=== PATIENT | male | born 1970 | race Caucasian/White ===

== ENCOUNTER 2016-04-27 20:22 | Inpatient (IN) | payer OTHER, BC ==
[~2016-04-27] VITALS: Ht 167.6 cm; Wt 133.8 kg
--- NOTE | ~2016-04-27 | HC ---
[facility] [place] [address] CONSULTATION Name: RAVINDERROBERT D Room #: 405-P [facility] M.R.#: [id number] Admission: 04/27/16 Attend Phys: Edilberto Malcolm MD Discharge: Date of : 74 Report #: [id number] THIS REPORT FOR: //name// CC: Geno Malcolm DATE OF SERVICE: 04/29/2016 HISTORY OF PRESENT ILLNESS: A 45-year-old white man with spina bifida, he is admitted with superficial ulceration of left thigh, possible cellulitis. He is started on Rocephin and Zyvox. The patient is alert, comfortable, in no distress. No systemic symptoms. He lives at home by himself and visiting nurses change dressing on his thighs daily and he is also helped at home with his bathing. DRUG ALLERGIES: VANCOMYCIN. MEDICATIONS: The patient is on treatment with warfarin 5 mg p.o. daily, magnesium hydroxide p.r.n., enoxaparin 40 mg subQ at bedtime, Rocephin 1 gram IV daily, linezolid 600 mg IV every 12 hours, ferrous sulfate 325 mg p.o. daily, ascorbic acid 500 mg daily and multivitamin 1 daily. PAST MEDICAL HISTORY: Spina bifida, multiple back surgeries. Ventriculoperitoneal shunt. History of DVT. Status post left calcanectomy for osteomyelitis. Multiple decubitus ulceration, debridement and flap closure. Longstanding history of left thigh superficial ulceration. Morbid obesity. Malnutrition. Debility. FAMILY HISTORY: See H and P, old records. SOCIAL HISTORY: See H and P, old records. REVIEW OF SYSTEMS: No systemic symptoms or fevers, did have some nausea and vomiting today. PHYSICAL EXAMINATION: GENERAL: Overweight man, not toxic looking. VITAL SIGNS: Temperature maximum since admission 99.3, pulse 92, respirations 18, BP 121/76, height 5 feet 6 inches and weight 295 pounds. HEENMT: Within range. NECK: Supple. LUNGS: Clear. HEART: S1, S2. No gallop or murmur. ABDOMEN: Obese, soft, no masses or megaly. BACK: Multiple surgical scars. GENITALIA AND RECTAL: Deferred. [address] [address] CONSULTATION Name: ROBERT CASTELLON Room #: 405-P [facility] [place] ..#: [id number] Admission: 04/27/16 Attend Phys: Edilberto Malcolm MD Discharge: Date of : 74 Report #: [id number] NEUROLOGIC: Paraplegia. EXTREMITIES: The left heel surgical scar well healed. The left thigh exam reveals superficial ulcerations and no deep structures exposed as well as chronic changes, but with contact dermatitis versus stasis dermatitis of the area. The patient relates may be the tape may be causing some of his problem. Minimal to no erythema. Minimal to no increased temperature. LABORATORY DATA: Sodium 138, potassium 3.8, BUN 12, creatinine 0.9, glucose 105. Albumin 2.6. WBC on admission 7.2, hemoglobin 8.2 g/dL, platelets 463,000; white blood cell count differential normal. MICROBIOLOGY DATA: Blood cultures were obtained on admission in a patient without fever or leukocytosis and they remain negative as one may expect. Note is made that the patient had previously Proteus mirabilis, MRSA on the foot and VRE in the urine. ASSESSMENT: 1. Possible cellulitis, left thigh. 2. Anemia of chronic disease. 3. Deep venous thrombosis, upper extremity, on Coumadin. 4. Spina bifida, paraplegia. 5. Neurogenic bladder, self catheterization. 6. Left posterior thigh chronic superficial ulcerations, question contact dermatitis. 7. Recent left heel osteomyelitis, status post calcanectomy. SUGGESTIONS: Recommend continued local wound care, Zyvox and Rocephin. Monitor ESR and CRP. If those normal, recommend discontinuation of parenteral antibiotics, continuation of local wound care and possibly discharge home. Dr. Malcolm, thank you for requesting my suggestions. <ELECTRONICALLY SIGNED> By: Nixon Crystal MD 05/02/16 1120 [id number] Nixon Crystal MD /nt
--- NOTE | ~2016-04-27 | H ---
[facility] [place] [address] HISTORY AND PHYSICAL Name: ROBERT CASTELLON Room #: 405-P [facility].#: [id number] Admission: 04/27/16 Attend Phys: Edilberto Malcolm MD Discharge: 05/02/16 Date of : 74 Report #: [id number] THIS REPORT FOR: //name// CC: Kateryna Bates ATTENDING PHYSICIAN:Nahun Ross M.D. PRIMARY CARE PHYSICIAN: Geno Bates M.D. CHIEF COMPLAINT: Left lower extremity swelling and redness. HISTORY OF PRESENT ILLNESS: The patient is a 45-year-old male with a history of spina bifida with paraplegia. He does have chronic left posterior thigh, buttock, decubitus ulcer that he has had for at least 25 years. He has had a prior muscle flap done in this area. He has had open wounds there again for the last few years and has been followed by Dr. Torres in the wound care clinic and has had multiple debridements. He was last here in January 2016 when he had a left heel osteomyelitis and required left heel partial calcanectomy. His cultures grew Proteus mirabilis and MRSA. He was discharged here on Unasyn and Zyvox. He went to his skilled facility and just has got out about 2 weeks ago. When he was discharged, he was switched to oral Zyvox and he is still taking that at this time. He denies any fevers. He does have home health who comes in daily and does dressing changes on his left thigh wound. He states that home health nurse thought he was having increasing left lower extremity edema and also some redness in his left calf area. She was concerned that there was possibly a DVT. Therefore, she sent him into the ER. He has not been having any fevers or chills. He really does not have much pain in this area because of his spina bifida. He says otherwise, he has been feeling fine recently with good appetite. No vomiting or diarrhea. While he was at rehab, he did have new DVT in his arm due to PICC line, which was subsequently removed. He was started on Coumadin and as of 5 days ago, his INR level was 4.0 and his dose was decreased. He denies any bleeding. He does have a history of anemia as well and it was previously felt to be due to chronic disease and iron deficiency. PAST MEDICAL HISTORY: Recent arm DVT, spina bifida with paraplegia, left posterior thigh chronic decubitus wound, hypertension, hydrocephalus, neurogenic bladder, scoliosis. 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 ALLERGIES: VANCOMYCIN cause itching and swelling. HOME MEDICATIONS: Zyvox 600 mg b.i.d, Coumadin 2 mg daily, gentamicin ointment [address] [address] HISTORY AND PHYSICAL Name: ROBERT CASTELLON Room #: 405-P [facility] ..#: [id number] Admission: 04/27/16 Attend Phys: Edilberto Malcolm MD Discharge: 05/02/16 Date of : 74 Report #: [id number] to the wound daily, vitamin C 500 mg daily, multivitamin with iron daily. SOCIAL HISTORY: The patient lives alone. He is wheelchair bound and is currently nonambulatory. He previously walked up until about 4 years ago. Denies any tobacco or alcohol use. He does have home health nursing, who is coming in daily now to do his dressing changes. FAMILY HISTORY: His mother 7 days after postsurgical complication. REVIEW OF SYSTEMS: Twelve point review of systems was reviewed with the patient, otherwise negative unless stated in the HPI. PHYSICAL EXAMINATION: GENERAL: The patient is an alert, obese male in no acute distress. VITAL SIGNS: Temperature is 36.8, heart rate 98, respirations 16, blood pressure is 136/88, oxygen 100% on room air. HEENT: PERRLA. Sclerae is nonicteric. Oral mucosa is pink and moist. NECK: Supple, no JVD noted. CARDIOVASCULAR: Normal S1, S2. No murmurs, rubs or gallops. RESPIRATORY: Breath sounds are clear bilaterally. No wheezing or rhonchi. Breathing is nonlabored. ABDOMEN: Obese, soft, nontender with positive bowel sounds. VASCULAR: He does have 4+ bilateral lower extremity edema with significant pedal edema at 4+. Pedal pulses are 1+. Feet are warm. SKIN: He does have a very large area of wounds to his left posterior thigh. He has a very odd appearance with multiple open areas, none of which are very deep and most of them are nondraining. There really has no surrounding erythema in this area. There is however, some very subtle erythema in his left calf as well as his right anterior torres. There is slightly warmth with underlying edema. He really does not have any sensation in this area to tell if he is having any pain with palpation. NEUROLOGIC: The patient is alert. He is oriented x 3. He is answering questions appropriately. He is moving his arms without difficulty and he is to have no movement of his lower extremities due to spina bifida. LABORATORY DATA AND DIAGNOSTICS: WBC 7.2, hemoglobin 8.2, platelets 463. INR 1.3. Sodium 138, potassium 3.8, BUN 12, creatinine 0.9, glucose 105. LFTs are within normal limits and venous Dopplers of lower extremities were negative for DVT. ASSESSMENT AND PLAN: 1. Mild cellulitis in the lower extremities. We will continue with IV Zyvox. The patient had been on oral Zyvox due to the previous left heel osteomyelitis. He looks nontoxic. He is afebrile without leukocytosis. Blood cultures have been drawn, and if negative, he will likely be able to discharge to back to home soon. We will also check a methicillin-resistant Staphylococcus aureus nasal [facility] [address] [place] [address] HISTORY AND PHYSICAL Name: ROBERT CASTELLON Room #: 405-P [facility]#: [id number] Admission: 04/27/16 Attend Phys: Edilberto Malcolm MD Discharge: 05/02/16 Date of : 74 Report #: [id number] swab. 2. Anemia. This is chronic. He normally runs around hemoglobin at 9. He is not having any active bleeding. Continue with iron supplement daily. 3. Recent deep vein thrombosis of the upper extremity, he is on Coumadin, although his INR is subtherapeutic. We will increase the dose slightly and check INR daily. 3. Spina bifida with paraplegia. He does have associated neurogenic bladder, continue with self catheterizations. 4. Chronic left posterior thigh wound. Patient is followed by Dr. Torres in the wound clinic. We will consult Dr. Torres for further recommendations. 5. Recent left heel osteomyelitis. He is status post partial calcanectomy and had been on oral Zyvox. Continue with IV Zyvox for now. 6. Deep vein thrombosis prophylaxis. Continue with Coumadin. We will continue to follow the patient closely throughout the hospitalization and make changes based on clinical status. <ELECTRONICALLY SIGNED> By: MAXWELL Humphreys 05/06/16 0646 [id number] MAXWELL Humphreys /nt
--- NOTE | ~2016-04-27 | HC ---
[facility] [place] [address] CONSULTATION Name: ROBERT CASTELLON Room #: 405-P [facility] IN ..#: [id number] Admission: 04/27/16 Attend Phys: Edilberto Malcolm MD Discharge: 05/02/16 Date of : 74 Report #: [id number] THIS REPORT FOR: //name// CC: Geno Malcolm DATE OF SERVICE: 04/28/2016 PERSONAL PHYSICIAN: Geno Bates M.D. CHIEF COMPLAINT: Left lower extremity swelling and redness. HISTORY OF PRESENT ILLNESS: This is a 45-year-old white male who has been a longstanding patient of mine, with a history of spina bifida and a chronic ulceration on his left posterior thigh region. The patient was seen by home health nurses yesterday and were concerned about increasing redness, swelling, warmth and tenderness of the left lower extremity concerning for possible blood clot versus cellulitis. The patient contacted our office at around 5 p.m. At that time, we told him that he needed to go to the Emergency Department for evaluation and at least an ultrasound and possible admission for cellulitis. The patient was admitted for cellulitis and is currently receiving IV antibiotics. The patient was actually seen by myself last week and the patient was doing quite well. The patient admits to the fact, however, that he has had further breakdown of his left posterior thigh ulceration just in the past week due to the fact that he has been home and having to do transfers with slide board and the nurses had noted increased shearing of this ulceration. The patient denies any other associated ulcerations at this time; however, the patient had a recent partial calcanectomy secondary to left heel osteomyelitis; that wound as of last week had totally closed. PAST MEDICAL HISTORY: Significant for recent right arm DVT, spina bifida with paraplegia, chronic left posterior thigh decubitus ulcer, hypertension, hydrocephalus, neurogenic bladder and scoliosis. CURRENT MEDICATIONS: Multiple including Zyvox and Coumadin. DRUG ALLERGIES: VANCOMYCIN. SOCIAL HISTORY: The patient resides alone and spends most of his time up in his wheelchair while at home. FAMILY HISTORY: Not pertinent to current medical condition. REVIEW OF SYSTEMS: CONSTITUTIONAL: The patient states he had a low grade fever yesterday, but has had no fever today. The patient denies any actual chills. [facility] [address] [place] [address] CONSULTATION Name: ROBERT CASTELLON Room #: 405-P [facility] IN [facility].#: [id number] Admission: 04/27/16 Attend Phys: Edilberto Malcolm MD Discharge: 05/02/16 Date of : 74 Report #: [id number] NEUROLOGIC: The patient has generalized weakness. EYES: No complaints. ENT: No complaints. CARDIAC: The patient had lower extremity edema which is chronic for him. GASTROINTESTINAL: The patient denies nausea, vomiting, abdominal pain. RESPIRATORY: The patient denies shortness breath, cough or wheezes. GENITOURINARY: The patient denies any urgency or frequency. The patient, however, does have a neurogenic bladder. MUSCULOSKELETAL: No complaints. SKIN: There is a chronic ulceration in his left posterior thigh as well as a healed surgical wound on the left heel. PHYSICAL EXAMINATION: VITAL SIGNS: Stable. The patient is afebrile. GENERAL: This is a morbidly obese white male who is in no acute distress. HEENT: Normocephalic, atraumatic. Mucous membranes are dry. Pupils are round. Sclerae are white. LUNGS: Clear. HEART: Regular. ABDOMEN: Obese, soft, otherwise nontender. MUSCULOSKELETAL: Evaluation of the left posterior diarrhea reveals multiple ulcerations consistent with stage III ulcerations, vascularly worse than it was approximately 1 week ago when I evaluated him. There is increased erythema, warmth and serosanguineous drainage noted from the ulcerations. Left lower extremity has 3-4+ edema with slight increased warmth, erythema. The left heel surgical wound still appears to be intact without signs of any drainage or dehiscence. Right lower extremity has 2-3+ edema without erythema, warmth. The right heel is intact. NEUROLOGIC: Cranial nerves 2-12 grossly intact. Motor and sensory, the patient is paraplegic below the waist. LABORATORY DATA: White count 7.2, hemoglobin 8.2, albumin is low at 2.6. Venous Dopplers, left lower extremity, shows no signs of deep venous cirrhosis. IMPRESSION: 1. Chronic ulceration, left posterior thigh, stage 3, present on admission. 2. Spina bifida with paraplegia. 3. Cellulitis, left lower extremity secondary to chronic ulceration. 4. Status post left partial calcanectomy, overall doing well. 5. Morbid obesity. 6. Severe protein calorie malnutrition with albumin of 2.5. 7. Generalized debility. PLAN: At this time, we will place Optifoam Ag Gentle over the posterior left thigh ulcerations and change this daily given the amount of drainage that the [facility] [address] [place] [address] CONSULTATION Name: ROBERT CASTELLON Room #: 405-P [facility] IN [facility]#: [id number] Admission: 04/27/16 Attend Phys: Edilberto Malcolm MD Discharge: 05/02/16 Date of : 74 Report #: [id number] patient has. We will do an Optifoam Gentle over his left heel for protection. We will get the patient in a low air loss mattress with a trapeze. We will make sure he maximizes his protein supplementation for healing. The patient is currently getting IV antibiotics under the care of the hospital. We will also make sure we maximize physical and occupational therapy as the patient can tolerate. The patient most likely will need at least a skilled facility placement at discharge. I will continue to follow the patient now. <ELECTRONICALLY SIGNED> By: Butch Torres MD 05/03/16 2044 1553 0142 Butch Torres MD /nt
[~2016-04-27 20:22] MED LIST: AUGMENTIN 875875 MG PO; DIFLUCAN200 MG PO; HYDROCODONE-APA1 TA1 PO; NEXIUM40 MG PO; UNICOMPLEX M TA1 TA1 PO; VITAMINC500 PO; ZIAC 10-6.25 M1 EACH PO; ZYVOX600 MG PO
[2016-04-27 20:32] VITALS: BP 136/88
[2016-04-27] MEDS ORDERED: COUMADIN 1MG TAB1 M1 PO (20:43)
[2016-04-27] MEDS ORDERED: GENTAMICIN 0.1%15 G2 TOP (20:44)
[2016-04-27 21:56] LABS: HEMATOCRIT 24.9 % (42.0-52.0); HEMOGLOBIN 8.2 gm/dL (14.0-18.0); MCH 26.8 pg (26.0-34.0); MCHC 32.9 % (28.0-37.0); MCV 81.5 fL (80.0-100.0); PLATELET COUNT 463 thou/uL (150-400); RBC 3.06 mil/uL (4.50-6.00); RDW 26.2 % (10.5-14.5); WBC 7.2 thou/uL (4.0-11.0)
[2016-04-27 21:58] LABS: MANUAL DIFF YES
[2016-04-27 22:03] LABS: CALCIUM 8.4 mg/dL (8.5-10.1); CREATININE 0.9 mg/dL (0.6-1.3); POTASSIUM 3.8 mmol/L (3.5-5.1)
[2016-04-27 22:09] LABS: ALBUMIN 2.6 g/dL (3.4-5.0); TOTAL BILIRUBIN 0.6 mg/dL (<0.1-1.0); TOTAL PROTEIN 7.1 g/dL (6.4-8.2)
[2016-04-27 22:15] LABS: APTT 31.6 Seconds (24.5-32.8); INR 1.3; PROTIME 13.5 Seconds (9.3-11.4)
[2016-04-27 22:21] LABS: TOTAL CELL COUNT 100
[2016-04-27 22:22] LABS: ANISOCYTOSIS 3+; HYPOCHROMASIA SLIGHT; POIKILOCYTOSIS SLIGHT; POLYCHROMASIA SLIGHT
[2016-04-27 23:53] VITALS: BP 121/71
[2016-04-28 00:11] VITALS: BP 129/75
[2016-04-28 05:00] VITALS: BP 95/53
[2016-04-28 07:50] VITALS: BP 123/79
[2016-04-29 05:11] LABS: INR 1.3
[2016-04-29 05:26] LABS: CREATININE 0.8 mg/dL (0.6-1.3); MAGNESIUM 2.2 mg/dL (1.8-2.4)
[2016-04-29 06:34] LABS: HEMATOCRIT 23.7 % (42.0-52.0); HEMOGLOBIN 7.7 gm/dL (14.0-18.0); MCH 26.7 pg (26.0-34.0); MCHC 32.6 % (28.0-37.0); MCV 81.9 fL (80.0-100.0); PLATELET COUNT 412 thou/uL (150-400); RBC 2.89 mil/uL (4.50-6.00); RDW 27.3 % (10.5-14.5); WBC 7.1 thou/uL (4.0-11.0)
[2016-04-29 06:46] LABS: MANUAL DIFF YES
[2016-04-29 07:50] LABS: ABSOLUTE NEUTROPHILS 4.1 thou/uL (1.4-8.2); TOTAL CELL COUNT 100
[2016-04-29 08:06] VITALS: BP 121/76
[2016-04-29 16:35] VITALS: BP 117/83
[2016-04-29 22:20] VITALS: BP 133/76
[2016-04-30 04:15] VITALS: BP 111/59
[2016-04-30 05:36] LABS: HEMATOCRIT 24.1 % (42.0-52.0); HEMOGLOBIN 7.8 gm/dL (14.0-18.0); MCH 26.9 pg (26.0-34.0); MCHC 32.2 % (28.0-37.0); MCV 83.7 fL (80.0-100.0); PLATELET COUNT 390 thou/uL (150-400); RBC 2.88 mil/uL (4.50-6.00); RDW 28.4 % (10.5-14.5); WBC 5.1 thou/uL (4.0-11.0)
[2016-04-30 05:41] LABS: MANUAL DIFF YES
[2016-04-30 05:47] LABS: INR 1.3; PROTIME 13.5 Seconds (9.3-11.4)
[2016-04-30 06:00] LABS: ABSOLUTE NEUTROPHILS 2.2 thou/uL (1.4-8.2); ANISOCYTOSIS 3+; PLATELET ESTIMATE NORMAL; TOTAL CELL COUNT 100
[2016-04-30 08:00] VITALS: BP 127/78
[2016-04-30 16:22] VITALS: BP 140/78
[2016-04-30 20:00] VITALS: BP 132/82
[2016-05-01 04:30] VITALS: BP 134/78
[2016-05-01 04:32] LABS: ABSOLUTE NEUTROPHILS 3.4 thou/uL (1.4-8.2); BASOPHILS 0.8 % (0.0-2.0); EOSINOPHILS 13.4 % (0.0-3.0); HEMATOCRIT 25.8 % (42.0-52.0); HEMOGLOBIN 8.1 gm/dL (14.0-18.0); LYMPHOCYTES 29.4 % (24.0-44.0); MCH 26.7 pg (26.0-34.0); MCHC 31.5 % (28.0-37.0); MCV 84.5 fL (80.0-100.0); MONOCYTES 8.1 % (1.0-8.0); PLATELET COUNT 418 thou/uL (150-400); POLYS 48.3 % (36.0-66.0); RBC 3.06 mil/uL (4.50-6.00); RDW 28.8 % (10.5-14.5)
[2016-05-01 04:46] LABS: INR 1.5; PROTIME 15.6 Seconds (9.3-11.4)
[2016-05-01 05:02] LABS: MANUAL DIFF NO
[2016-05-01 05:24] LABS: ALBUMIN 2.3 g/dL (3.4-5.0); CALCIUM 8.2 mg/dL (8.5-10.1); CREATININE 0.9 mg/dL (0.6-1.3); POTASSIUM 4.5 mmol/L (3.5-5.1); TOTAL BILIRUBIN 0.3 mg/dL (<0.1-1.0); TOTAL PROTEIN 6.6 g/dL (6.4-8.2)
[2016-05-01 06:37] LABS: ANISOCYTOSIS 2+; MICROCYTES 2+; PLATELET ESTIMATE INCREASED
[2016-05-01 07:52] VITALS: BP 119/80
[2016-05-01 16:38] VITALS: BP 149/95
[2016-05-01 19:45] VITALS: BP 130/74
[2016-05-02 04:00] VITALS: BP 123/43
[2016-05-02 06:03] LABS: HEMOGLOBIN 8.1 gm/dL (14.0-18.0); MCH 27.4 pg (26.0-34.0); MCHC 32.3 % (28.0-37.0); MCV 84.9 fL (80.0-100.0); RBC 2.95 mil/uL (4.50-6.00); RDW 28.5 % (10.5-14.5); WBC 6.1 thou/uL (4.0-11.0)
[2016-05-02 06:15] LABS: CALCIUM 8.3 mg/dL (8.5-10.1); CREATININE 0.9 mg/dL (0.6-1.3); MAGNESIUM 2.2 mg/dL (1.8-2.4); POTASSIUM 4.7 mmol/L (3.5-5.1)
[2016-05-02 08:20] VITALS: BP 105/80
[2016-05-02] MEDS ORDERED: CLOTRIMAZOLE-BE15 GM TOP (15:31)
[2016-05-02] MEDS ORDERED: IRON325 PO (15:31)
[2016-05-02 16:45] VITALS: BP 127/79
[2016-05-02 18:00] LABS: INR 2.1; PROTIME 22.1 Seconds (9.3-11.4)
[2016-05-02 19:23] VITALS: BP 127/79
== END 2016-05-02 20:13 | disposition home or self-care (01) | DRG 579 ==
LOC: ER 20:22 → EROBS 23:07 → 4N 23:07
PROVIDERS: Internal Medicine; Nurse Practitioner; Nurse Practitioner Acute Care; Nurse Practitioner Family
PROC: 0JDM0ZZ Extraction of Left Upper Leg Subcutaneous Tissue and Fascia, Open Approach (ICD-10-PCS; principal; 2016-05-02)
DX: L03.116 Cellulitis of left lower limb (principal); E43 Unspecified severe protein-calorie malnutrition; L89.893 Pressure ulcer of other site, stage 3; G82.20 Paraplegia, unspecified; Z68.42 Body mass index [BMI] 45.0-49.9, adult; Z60.2 Problems related to living alone; D63.8 Anemia in other chronic diseases classified elsewhere; I10 Essential (primary) hypertension; K21.9 Gastro-esophageal reflux disease without esophagitis; L73.8 Other specified follicular disorders; E66.01 Morbid (severe) obesity due to excess calories; N31.9 Neuromuscular dysfunction of bladder, unspecified; M41.9 Scoliosis, unspecified; Z98.890 Other specified postprocedural states; Z79.01 Long term (current) use of anticoagulants; Q05.9 Spina bifida, unspecified; Z88.1 Allergy status to other antibiotic agents; Z86.718 Personal history of other venous thrombosis and embolism; Z84.89 Family history of other specified conditions; X58.XXXA Exposure to other specified factors, initial encounter; Y93.89 Activity, other specified; Y92.89 Other specified places as the place of occurrence of the external cause; Y99.8 Other external cause status
CPT/HCPCS: 10091; J7140

== ENCOUNTER → 2016-05-19 | Outpatient (CLI) | payer OTHER, BC ==
[~2016-05-19] MED LIST changes: +CLOTRIMAZOLE-BE15 GM TOP; +COUMADIN 1MG TAB1 M1 PO; +GENTAMICIN 0.1%15 G2 TOP; +IRON325 PO
== END ==
LOC: HYPER 05-04 08:48
DX: T81.89XD Other complications of procedures, not elsewhere classified, subsequent encounter (principal); S71.102D Unspecified open wound, left thigh, subsequent encounter; L89.623 Pressure ulcer of left heel, stage 3; Q05.2 Lumbar spina bifida with hydrocephalus; E66.01 Morbid (severe) obesity due to excess calories; R60.0 Localized edema; Y83.8 Other surgical procedures as the cause of abnormal reaction of the patient, or of later complication, without mention of misadventure at the time of the procedure

== ENCOUNTER → 2016-07-14 | Outpatient (CLI) | payer OTHER, BC | LOC: HYPER 07:03 | DX: T81.89XD Other complications of procedures, not elsewhere classified, subsequent encounter (principal); L89.893 Pressure ulcer of other site, stage 3; Q05.2 Lumbar spina bifida with hydrocephalus; E66.01 Morbid (severe) obesity due to excess calories; I10 Essential (primary) hypertension; I87.2 Venous insufficiency (chronic) (peripheral); Y83.8 Other surgical procedures as the cause of abnormal reaction of the patient, or of later complication, without mention of misadventure at the time of the procedure ==

== ENCOUNTER → 2016-08-25 | Outpatient (CLI) | payer OTHER, BC | LOC: HYPER 07:12 | DX: T81.89XD Other complications of procedures, not elsewhere classified, subsequent encounter (principal); S30.810A Abrasion of lower back and pelvis, initial encounter; E66.01 Morbid (severe) obesity due to excess calories; R60.0 Localized edema; I10 Essential (primary) hypertension; I87.2 Venous insufficiency (chronic) (peripheral); Z68.42 Body mass index [BMI] 45.0-49.9, adult; Y83.8 Other surgical procedures as the cause of abnormal reaction of the patient, or of later complication, without mention of misadventure at the time of the procedure; X58.XXXA Exposure to other specified factors, initial encounter; Y93.89 Activity, other specified; Y92.89 Other specified places as the place of occurrence of the external cause; Y99.8 Other external cause status ==

== ENCOUNTER → 2016-10-06 | Outpatient (CLI) | payer OTHER, BC | LOC: HYPER 07:20 | DX: T81.89XD Other complications of procedures, not elsewhere classified, subsequent encounter (principal); E66.01 Morbid (severe) obesity due to excess calories; Q05.2 Lumbar spina bifida with hydrocephalus; I10 Essential (primary) hypertension; I87.2 Venous insufficiency (chronic) (peripheral); Z68.42 Body mass index [BMI] 45.0-49.9, adult; Y83.8 Other surgical procedures as the cause of abnormal reaction of the patient, or of later complication, without mention of misadventure at the time of the procedure ==

== ENCOUNTER → 2016-11-03 | Outpatient (CLI) | payer OTHER, BC | LOC: HYPER 06:59 | DX: T81.89XD Other complications of procedures, not elsewhere classified, subsequent encounter (principal); L89.893 Pressure ulcer of other site, stage 3; Q05.2 Lumbar spina bifida with hydrocephalus; E66.01 Morbid (severe) obesity due to excess calories; Z68.42 Body mass index [BMI] 45.0-49.9, adult; I10 Essential (primary) hypertension; I87.2 Venous insufficiency (chronic) (peripheral); Y83.8 Other surgical procedures as the cause of abnormal reaction of the patient, or of later complication, without mention of misadventure at the time of the procedure ==

== ENCOUNTER → 2016-12-01 | Outpatient (CLI) | payer OTHER, BC | LOC: HYPER 07:09 | DX: T81.89XD Other complications of procedures, not elsewhere classified, subsequent encounter (principal); L89.893 Pressure ulcer of other site, stage 3; Q05.2 Lumbar spina bifida with hydrocephalus; E66.01 Morbid (severe) obesity due to excess calories; I87.2 Venous insufficiency (chronic) (peripheral); I10 Essential (primary) hypertension; Z68.42 Body mass index [BMI] 45.0-49.9, adult; Y83.8 Other surgical procedures as the cause of abnormal reaction of the patient, or of later complication, without mention of misadventure at the time of the procedure ==

== ENCOUNTER 2016-12-30 14:33 | Emergency (ER) | payer OTHER, BC ==
[~2016-12-30] VITALS: Ht 167.6 cm; Wt 136.1 kg
[2016-12-30] MEDS ORDERED: BISOPROLOL FUMAR5 MG PO (15:23)
== END 2016-12-30 16:15 | disposition home or self-care (01) ==
LOC: ER 14:33
DX: I10 Essential (primary) hypertension (principal); Z86.718 Personal history of other venous thrombosis and embolism; Z98.2 Presence of cerebrospinal fluid drainage device; Z98.890 Other specified postprocedural states; Z87.19 Personal history of other diseases of the digestive system; Z88.1 Allergy status to other antibiotic agents

== ENCOUNTER → 2017-01-03 | Outpatient (CLI) | payer OTHER, BC ==
[~2017-01-03] MED LIST changes: +BISOPROLOL FUMAR5 MG PO
== END ==
LOC: HYPER 07:25
DX: T81.89XD Other complications of procedures, not elsewhere classified, subsequent encounter (principal); L89.893 Pressure ulcer of other site, stage 3; I87.2 Venous insufficiency (chronic) (peripheral); E66.01 Morbid (severe) obesity due to excess calories; Q05.2 Lumbar spina bifida with hydrocephalus; R60.0 Localized edema; I10 Essential (primary) hypertension; Y83.8 Other surgical procedures as the cause of abnormal reaction of the patient, or of later complication, without mention of misadventure at the time of the procedure

== ENCOUNTER → 2017-02-02 | Outpatient (CLI) | payer OTHER, BC | LOC: HYPER 07:10 | DX: T81.89XD Other complications of procedures, not elsewhere classified, subsequent encounter (principal); L89.893 Pressure ulcer of other site, stage 3; Q05.2 Lumbar spina bifida with hydrocephalus; E66.01 Morbid (severe) obesity due to excess calories; Z68.42 Body mass index [BMI] 45.0-49.9, adult; I87.2 Venous insufficiency (chronic) (peripheral); Y83.8 Other surgical procedures as the cause of abnormal reaction of the patient, or of later complication, without mention of misadventure at the time of the procedure ==

== ENCOUNTER → 2017-03-01 | Outpatient (CLI) | payer OTHER, BC | LOC: HYPER 07:12 | DX: T81.89XD Other complications of procedures, not elsewhere classified, subsequent encounter (principal); E66.01 Morbid (severe) obesity due to excess calories; I10 Essential (primary) hypertension; I87.2 Venous insufficiency (chronic) (peripheral); Z68.42 Body mass index [BMI] 45.0-49.9, adult; Y83.8 Other surgical procedures as the cause of abnormal reaction of the patient, or of later complication, without mention of misadventure at the time of the procedure ==

== ENCOUNTER → 2017-03-29 | Outpatient (CLI) | payer OTHER, BC | LOC: HYPER 07:59 | DX: T81.89XD Other complications of procedures, not elsewhere classified, subsequent encounter (principal); L89.893 Pressure ulcer of other site, stage 3; I87.2 Venous insufficiency (chronic) (peripheral); I10 Essential (primary) hypertension; Q05.2 Lumbar spina bifida with hydrocephalus; R60.0 Localized edema; E66.01 Morbid (severe) obesity due to excess calories; Z68.42 Body mass index [BMI] 45.0-49.9, adult ==

== ENCOUNTER → 2017-04-20 | Outpatient (CLI) | payer OTHER, BC | LOC: HYPER 06:30 | DX: L89.893 Pressure ulcer of other site, stage 3 (principal); E66.01 Morbid (severe) obesity due to excess calories; I10 Essential (primary) hypertension; I87.2 Venous insufficiency (chronic) (peripheral); Z68.42 Body mass index [BMI] 45.0-49.9, adult ==

== ENCOUNTER 2017-05-02 09:37 | Inpatient (IN) | payer OTHER, BC ==
[~2017-05-02] VITALS: Ht 167.6 cm; Wt 132.4 kg
--- NOTE | ~2017-05-02 | HC ---
[facility] [place] [address] CONSULTATION Name: ROBERT CASTELLON Room #: 424-P [facility] IN M.R.#: [id number] Admission: 05/02/17 Attend Phys: Moy Blanco DO Discharge: Date of : 74 Report #: [id number] THIS REPORT FOR: //name// CC: Moy Bates DATE OF SERVICE: 05/03/2017 ATTENDING PHYSICIAN: Dr. Blanco. REASON FOR CONSULTATION: Cellulitis, left leg. HISTORY OF PRESENT ILLNESS: A 46-year-old white man admitted through the Emergency Room with redness, left leg and history of fever up to 102 this past Monday. The patient is diagnosed to have cellulitis of left leg. Rocephin and Zyvox single dose given on admission. The patient having not much of any feeling on lower extremities, but he does have redness on the left leg, wondering if he has clot, and the ultrasound of the venous circulation in the left leg was negative. PAST MEDICAL HISTORY: Spina bifida. Weakness, lower extremities. History of bladder surgery at [facility] with bladder augmentation using a small bowel. The patient self catheterizes daily. He has a past history of osteomyelitis of the left heel. He underwent calcanectomy of the heel. 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 History of decubitus ulcerations requiring flap closure. Morbid obesity. Hypoalbuminemia, malnutrition. SOCIAL HISTORY: The patient lives at home. No tobacco, no alcohol. DRUG ALLERGIES: VANCOMYCIN, ITCHING AND SWELLING, DIFFICULTY BREATHING. MEDICATIONS: The patient has received Rocephin 1 gram IV on admission as well as Zyvox 600 mg 1 single dose. The patient also on treatment with p.r.n. oxycodone, rivaroxaban, ascorbic acid, p.r.n. tramadol, p.r.n. acetaminophen. REVIEW OF SYSTEMS: Essentially noncontributory besides what has been stated above and for further details, see H and P. PHYSICAL EXAMINATION: GENERAL: Overweight man, not toxic looking. VITAL SIGNS: Temperature on admission 99.2, pulse 107, respirations 18, BP 132/77, weight 132 kilograms, height 5 feet 6 inches HEENMT: Head normocephalic, atraumatic. Pupils reactive. Mouth: No thrush. NECK: Short, supple. No palpable masses or megaly. LUNGS: Clear to auscultation. HEART: S1, S2. No gallop or murmur. [facility] [address] [place] [address] CONSULTATION Name: ROBERT CASTELLON Room #: 424-P [facility] IN [facility].#: [id number] Admission: 05/02/17 Attend Phys: Moy Blanco DO Discharge: Date of : 74 Report #: [id number] ABDOMEN: Infraumbilical laparotomy scar, soft, no masses or megaly. EXTREMITIES: Status post left calcanectomy, cellulitic changes, left leg. NEUROLOGIC: Paraplegia. LABORATORY DATA: Sodium 133, potassium 3.7, BUN 19, creatinine 1, glucose 122, albumin 2.2 g/dL. Protime 14 seconds. WBC 10,800, hemoglobin 9.5 g/dL, platelets 435,000. Urinalysis revealed 1+ protein, 2+ leukocyte esterase. Microscopic exam revealed pyuria, bacteriuria and granular casts. MICROBIOLOGY DATA: The blood and urine cultures are negative at the time of this dictation. RADIOLOGY EVALUATION: An ultrasound venous lower extremities negative for DVT. ASSESSMENT: 1. Fever and redness, left leg -- cellulitis, left lower extremity. 2. History of osteomyelitis, left os calcis, status post calcanectomy. 3. Spina bifida. 4. History of bladder augmentation with small bowel. 5. Chronic pyuria and bacteriuria, possibly secondary to above, self catheterization. 6. VANCOMYCIN ALLERGY. SUGGESTIONS: Recommend ESR. CRP. MRSA screen. Rocephin 2 grams IV daily. Zyvox [address] Blanco, thank you for requesting my suggestions in the care of your patient. <ELECTRONICALLY SIGNED> By: Nixon Crystal MD 05/04/17 1008 1101 1159 Nixon Crystal MD /nt
--- NOTE | ~2017-05-02 | HC ---
[facility] [place] [address] CONSULTATION Name: FELISHATUNDEROBERT Lindsey Room #: 424-P [facility] IN M.R.#: [id number] Admission: 05/02/17 Attend Phys: Moy Blanco DO Discharge: Date of : 74 Report #: [id number] THIS REPORT FOR: //name// CC: Moy Bates DATE OF SERVICE: 05/03/2017 CHIEF COMPLAINT: Cellulitis of the left lower extremity and stage 3 pressure ulcers in the left thigh. HISTORY OF PRESENT ILLNESS: This is a 46-year-old white male patient admitted through the emergency department with increasing redness and swelling of his left lower extremity. He also has a history of a pressure ulceration to the left posterior thigh. We have seen him in the past for such. He complains of some fever and chills. PAST MEDICAL HISTORY: Positive for history of spina bifida and lower extremity weakness. He has requirement of daily self catheterization. He has a history of osteomyelitis of his left heel that is closed, status post calcaneus calcanectomy. 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 He has had previous flap closure to the left posterior thigh, morbid obesity, and malnutrition. SOCIAL HISTORY: Negative for alcohol or tobacco use. ALLERGIES: To VANCOMYCIN. MEDICATIONS: Include Rocephin, Zyvox, oxycodone, rivaroxaban, ascorbic acid, tramadol, and acetaminophen. REVIEW OF SYSTEMS: CONSTITUTIONAL: The patient denies fever, chills, or weight loss. NEUROLOGICAL: The patient has lower extremity weakness bilaterally as well as neurogenic bladder. ENT: The patient denies earache, nasal drainage, or sore throat. CARDIOVASCULAR: The patient denies chest pain, palpitation, or diaphoresis. PULMONARY: The patient denies cough or shortness of breath. GASTROINTESTINAL: The patient denies nausea or abdominal pain. ORTHOPEDIC: The patient does note some discomfort, swelling, and redness of his left lower extremity. Other systems in a 12-point review of systems are negative. PHYSICAL EXAMINATION: VITAL SIGNS: At this time include pulse , respiratory rate 21, blood pressure 130/80, and temperature . [facility] [address] [place] [address] CONSULTATION Name: ROBERT CASTELLON Room #: 424-P [facility] IN [facility].#: [id number] Admission: 05/02/17 Attend Phys: Moy Blanco DO Discharge: Date of : 74 Report #: [id number] GENERAL: This is a chronically ill-appearing male patient who appears to be in minimal distress. HEENT: Head normocephalic. Nose and throat are clear. NECK: Supple. LUNGS: Clear. HEART: Regular rhythm. ABDOMEN: Soft. Bowel sounds present. EXTREMITIES: Examination of the lower extremities demonstrates erythema and swelling consistent with cellulitis in the left lower leg. He has multiple stage III pressure ulcers in the left posterior thigh, most of which are clean and granulating. There is some excoriation and a little bit of maceration noted. CLINICAL IMPRESSION: 1. Cellulitis of the left lower extremity seems to be improving. 2. Stage III pressure ulcers in the left posterior thigh. 3. Bilateral lower extremity weakness secondary to spina bifida. RECOMMENDATIONS: At this point in time, we will recommend aggressive nutritional support, intravenous antibiotic therapy for the cellulitis. We will recommend topical silver alginate and ABD pad to the left posterior thigh, turning and repositioning. All questions have been answered. I appreciate being asked to see him in consultation. <ELECTRONICALLY SIGNED> By: You Cabello MD 05/04/17 0856 [id number] You Cabello MD /nt
[2017-05-02 09:41] VITALS: BP 132/77
[2017-05-02] MEDS ORDERED: XARELTO10 MG PO (09:47)
[2017-05-02] MEDS ORDERED: AMOXICILLIN 50500 MG PO (09:48)
[2017-05-02] MEDS ORDERED: DOXYCYCLINE 10100 MG PO (09:48)
[2017-05-02 10:19] LABS: HEMATOCRIT 30.9 % (42.0-52.0); HEMOGLOBIN 9.5 gm/dL (14.0-18.0); MCH 19.6 pg (26.0-34.0); MCHC 30.8 g/dL (28.0-37.0); MCV 63.6 fL (80.0-100.0); PLATELET COUNT 435 thou/uL (150-400); RBC 4.86 mil/uL (4.50-6.00); RDW 20.5 % (10.5-14.5); WBC 10.8 thou/uL (4.0-11.0)
[2017-05-02 10:37] LABS: CALCIUM 8.6 mg/dL (8.5-10.1); POTASSIUM 3.7 mmol/L (3.5-5.1)
[2017-05-02 10:42] LABS: ALBUMIN 2.2 g/dL (3.4-5.0); TOTAL BILIRUBIN 0.4 mg/dL (<0.1-1.0); TOTAL PROTEIN 8.4 g/dL (6.4-8.2)
[2017-05-02 10:58] LABS: URINE BILIRUBIN NEGATIVE (Negative); URINE BLOOD 1+ (Negative); URINE CLARITY CLEAR; URINE COLOR YELLOW; URINE GLUCOSE-RANDOM* NEGATIVE (Negative); URINE KETONES NEGATIVE (Negative); URINE LEUKOCYTES 2+ (Negative); URINE NITRITE NEGATIVE (Negative); URINE PROTEIN (DIPSTICK) 1+ (Negative); URINE SPECIFIC GRAVITY 1.015 (1.005-1.035)
[2017-05-02 10:58] LABS: ABSOLUTE NEUTROPHILS 8.9 thou/uL (1.4-8.2); ANISOCYTOSIS 2+; HYPOCHROMASIA 1+; TARGET CELLS OCCASIONAL
[2017-05-02 10:59] LABS: MICROCYTES 1+
[2017-05-02 11:44] LABS: INR 1.4
[2017-05-02 11:44] LABS: SQUAMOUS None Seen /LPF (0-3)
[2017-05-02 11:45] LABS: MUCUS >6 Heavy strn/LPF (None Seen); URINE WBC >25 Many /HPF (0-5)
[2017-05-02 11:46] LABS: COARSE GRANULAR CASTS 4-10 Moderate /LPF (None Seen)
[2017-05-02 11:47] LABS: BACTERIA 1-9 Few /HPF (None Seen); CASTS None Seen /LPF (None Seen); CRYSTALS None Seen /LPF (None Seen); URINE RBC 0-2 Rare /HPF (0-2)
[2017-05-02 18:44] VITALS: BP 122/83
[2017-05-02 21:13] VITALS: BP 107/53
[2017-05-02 21:34] VITALS: BP 92/49
[2017-05-03 03:53] VITALS: BP 86/49
[2017-05-03 07:12] VITALS: BP 113/72
[2017-05-03 07:49] VITALS: BP 126/78
[2017-05-03 07:54] LABS: ABSOLUTE NEUTROPHILS 5.5 thou/uL (1.4-8.2); EOSINOPHILS 3.9 % (0.0-3.0); HEMATOCRIT 27.5 % (42.0-52.0); HEMOGLOBIN 8.5 gm/dL (14.0-18.0); LYMPHOCYTES 14.8 % (24.0-44.0); MCH 19.2 pg (26.0-34.0); MONOCYTES 10.9 % (1.0-8.0); POLYS 69.4 % (36.0-66.0); RBC 4.44 mil/uL (4.50-6.00); RDW 20.2 % (10.5-14.5); WBC 7.9 thou/uL (4.0-11.0)
[2017-05-03 08:02] LABS: PLATELET COUNT 331 thou/uL (150-400)
[2017-05-03 08:07] LABS: CALCIUM 7.7 mg/dL (8.5-10.1); CREATININE 0.8 mg/dL (0.7-1.3); POTASSIUM 3.9 mmol/L (3.5-5.1)
[2017-05-03 09:03] LABS: ANISOCYTOSIS 2+
[2017-05-03 09:04] LABS: HYPOCHROMASIA 3+; MICROCYTES 3+; POLYCHROMASIA OCCASIONAL
[2017-05-03 15:40] VITALS: BP 130/80
[2017-05-03 20:30] VITALS: BP 122/80
[2017-05-04 04:30] VITALS: BP 111/69
[2017-05-04 06:40] LABS: BASOPHILS 0.8 % (0.0-2.0); EOSINOPHILS 9.1 % (0.0-3.0); HEMATOCRIT 26.6 % (42.0-52.0); HEMOGLOBIN 8.2 gm/dL (14.0-18.0); LYMPHOCYTES 31.5 % (24.0-44.0); MCH 19.4 pg (26.0-34.0); MCHC 30.8 g/dL (28.0-37.0); MONOCYTES 9.9 % (1.0-8.0); PLATELET COUNT 403 thou/uL (150-400); POLYS 48.7 % (36.0-66.0); RBC 4.22 mil/uL (4.50-6.00); RDW 20.7 % (10.5-14.5); WBC 6.2 thou/uL (4.0-11.0)
[2017-05-04 06:50] LABS: CREATININE 0.8 mg/dL (0.7-1.3); POTASSIUM 3.6 mmol/L (3.5-5.1)
[2017-05-04 07:15] VITALS: BP 118/57
[2017-05-04 09:44] LABS: ANISOCYTOSIS 2+; HYPOCHROMASIA 2+; MICROCYTES 3+; POLYCHROMASIA SLIGHT
[2017-05-04 15:21] VITALS: BP 116/76
[2017-05-04 20:53] VITALS: BP 116/95
[2017-05-05 06:05] LABS: ABSOLUTE NEUTROPHILS 4.1 thou/uL (1.4-8.2); BASOPHILS 0.8 % (0.0-2.0); EOSINOPHILS 8.4 % (0.0-3.0); HEMATOCRIT 27.1 % (42.0-52.0); HEMOGLOBIN 7.9 gm/dL (14.0-18.0); LYMPHOCYTES 22.5 % (24.0-44.0); MCH 19.4 pg (26.0-34.0); MCHC 29.2 g/dL (28.0-37.0); MCV 66.5 fL (80.0-100.0); MONOCYTES 8.5 % (1.0-8.0); PLATELET COUNT 417 thou/uL (150-400); POLYS 59.8 % (36.0-66.0); RBC 4.07 mil/uL (4.50-6.00); RDW 20.9 % (10.5-14.5); WBC 6.9 thou/uL (4.0-11.0)
[2017-05-05 06:18] LABS: CALCIUM 8.2 mg/dL (8.5-10.1); CREATININE 0.8 mg/dL (0.7-1.3); POTASSIUM 4.2 mmol/L (3.5-5.1)
[2017-05-05 07:50] VITALS: BP 132/82
[2017-05-05 08:40] LABS: ANISOCYTOSIS 2+; HYPOCHROMASIA 3+; MICROCYTES 2+; POLYCHROMASIA OCCASIONAL
[2017-05-05] MEDS ORDERED: OXYCODONE HCL 55 MG PO (08:52)
[2017-05-05] MEDS ORDERED: KEFLEX500 M1 PO (08:52)
[2017-05-05 09:20] VITALS: BP 116/95
== END 2017-05-05 12:20 | disposition home health service (06) | DRG 871 ==
LOC: ER 09:37 → EROBS 11:58 → 4E 11:58 → ENTRNSPT 05-05 12:01 → 4E 05-05 12:20
PROVIDERS: Family Medicine; Physician Assistant
DX: A41.9 Sepsis, unspecified organism (principal); E43 Unspecified severe protein-calorie malnutrition; L89.223 Pressure ulcer of left hip, stage 3; L03.116 Cellulitis of left lower limb; Z68.42 Body mass index [BMI] 45.0-49.9, adult; N20.1 Calculus of ureter; I10 Essential (primary) hypertension; M41.9 Scoliosis, unspecified; N31.9 Neuromuscular dysfunction of bladder, unspecified; E66.01 Morbid (severe) obesity due to excess calories; Q05.9 Spina bifida, unspecified; Z98.2 Presence of cerebrospinal fluid drainage device; Z79.899 Other long term (current) drug therapy; Z86.718 Personal history of other venous thrombosis and embolism; Z88.1 Allergy status to other antibiotic agents
CPT/HCPCS: 10783; 50455

== ENCOUNTER → 2017-05-16 | Outpatient (CLI) | payer OTHER, BC ==
[~2017-05-16] MED LIST changes: +AMOXICILLIN 50500 MG PO; +BISOPROLOL FUM2.5 MG PO; +DOXYCYCLINE 10100 MG PO; +ELIQUIS2.5 MG PO; +KEFLEX500 M1 PO; +OXYCODONE HCL 55 MG PO; +XARELTO10 MG PO
== END ==
LOC: HYPER 05-11 06:38
DX: L89.893 Pressure ulcer of other site, stage 3 (principal); L89.890 Pressure ulcer of other site, unstageable; Q05.2 Lumbar spina bifida with hydrocephalus; E66.01 Morbid (severe) obesity due to excess calories; I87.2 Venous insufficiency (chronic) (peripheral)

== ENCOUNTER → 2017-05-16 | Outpatient (CLI) | payer OTHER, BC | LOC: SEN 05-11 10:33 | DX: L03.116 Cellulitis of left lower limb (principal); L89.890 Pressure ulcer of other site, unstageable ==

== ENCOUNTER → 2017-06-22 | Outpatient (CLI) | payer OTHER, BC | LOC: HYPER 08:39 | DX: L89.223 Pressure ulcer of left hip, stage 3 (principal); L89.893 Pressure ulcer of other site, stage 3; R60.0 Localized edema; I10 Essential (primary) hypertension; Q05.2 Lumbar spina bifida with hydrocephalus; E66.01 Morbid (severe) obesity due to excess calories; Z68.42 Body mass index [BMI] 45.0-49.9, adult ==

== ENCOUNTER → 2017-07-20 | Outpatient (CLI) | payer OTHER, BC | LOC: HYPER 07:09 | DX: L89.223 Pressure ulcer of left hip, stage 3 (principal); L89.890 Pressure ulcer of other site, unstageable; R60.0 Localized edema; E66.01 Morbid (severe) obesity due to excess calories; Z68.42 Body mass index [BMI] 45.0-49.9, adult; I10 Essential (primary) hypertension ==

== ENCOUNTER → 2017-10-05 | Outpatient (CLI) | payer OTHER, BC ==
[~2017-10-05] MED LIST changes: -BISOPROLOL FUM2.5 MG PO; -ELIQUIS2.5 MG PO
== END ==
LOC: HYPER 06:50
DX: L89.893 Pressure ulcer of other site, stage 3 (principal); Q05.2 Lumbar spina bifida with hydrocephalus; E66.01 Morbid (severe) obesity due to excess calories; I10 Essential (primary) hypertension; I87.2 Venous insufficiency (chronic) (peripheral); Z68.42 Body mass index [BMI] 45.0-49.9, adult

== ENCOUNTER → 2017-11-02 | Outpatient (CLI) | payer OTHER, BC ==
[~2017-11-02] MED LIST changes: +BISOPROLOL FUM2.5 MG PO; +ELIQUIS2.5 MG PO
== END ==
LOC: HYPER 07:07
DX: L89.893 Pressure ulcer of other site, stage 3 (principal); I87.2 Venous insufficiency (chronic) (peripheral); Q05.2 Lumbar spina bifida with hydrocephalus; E66.01 Morbid (severe) obesity due to excess calories; I10 Essential (primary) hypertension; Z68.42 Body mass index [BMI] 45.0-49.9, adult

== ENCOUNTER 2017-11-06 20:09 | Emergency (ER) | payer OTHER, BC ==
[~2017-11-06] VITALS: Ht 167.6 cm; Wt 136.1 kg
[~2017-11-06 20:09] MED LIST changes: -BISOPROLOL FUM2.5 MG PO; -ELIQUIS2.5 MG PO
[2017-11-06] MEDS ORDERED: BISOPROLOL FUM2.5 MG PO (22:19)
[2017-11-06] MEDS ORDERED: ELIQUIS2.5 MG PO (22:19)
[2017-11-06] MEDS ORDERED: DOXYCYCLINE 10100 MG PO (22:21)
== END 2017-11-06 22:54 | disposition home or self-care (01) ==
LOC: ER 20:09
DX: L03.116 Cellulitis of left lower limb (principal); R51 Headache; R50.9 Fever, unspecified; I10 Essential (primary) hypertension; Z90.89 Acquired absence of other organs; Z88.1 Allergy status to other antibiotic agents

== ENCOUNTER → 2017-12-07 | Outpatient (CLI) | payer OTHER, BC ==
[~2017-12-07] MED LIST changes: +BISOPROLOL FUM2.5 MG PO; +ELIQUIS2.5 MG PO
== END ==
LOC: HYPER 07:02
DX: L89.223 Pressure ulcer of left hip, stage 3 (principal); L89.893 Pressure ulcer of other site, stage 3; Q05.2 Lumbar spina bifida with hydrocephalus; E66.01 Morbid (severe) obesity due to excess calories; I10 Essential (primary) hypertension; I87.2 Venous insufficiency (chronic) (peripheral); Z68.42 Body mass index [BMI] 45.0-49.9, adult

== ENCOUNTER → 2018-01-18 | Outpatient (CLI) | payer OTHER, BC | LOC: HYPER 07:02 | DX: L89.323 Pressure ulcer of left buttock, stage 3 (principal); L89.313 Pressure ulcer of right buttock, stage 3; L89.223 Pressure ulcer of left hip, stage 3; E66.01 Morbid (severe) obesity due to excess calories; Q05.2 Lumbar spina bifida with hydrocephalus; I10 Essential (primary) hypertension; I87.2 Venous insufficiency (chronic) (peripheral); Z68.42 Body mass index [BMI] 45.0-49.9, adult ==

== ENCOUNTER → 2018-03-01 | Outpatient (CLI) | payer OTHER, BC | LOC: HYPER 06:56 | DX: T86.828 Other complications of skin graft (allograft) (autograft) (principal); L89.323 Pressure ulcer of left buttock, stage 3; L89.893 Pressure ulcer of other site, stage 3; E66.01 Morbid (severe) obesity due to excess calories; I10 Essential (primary) hypertension; Q05.2 Lumbar spina bifida with hydrocephalus; Z68.42 Body mass index [BMI] 45.0-49.9, adult; Y83.2 Surgical operation with anastomosis, bypass or graft as the cause of abnormal reaction of the patient, or of later complication, without mention of misadventure at the time of the procedure ==

== ENCOUNTER → 2018-04-12 | Outpatient (CLI) | payer OTHER, BC | LOC: HYPER 07:18 | DX: L89.323 Pressure ulcer of left buttock, stage 3 (principal); L89.893 Pressure ulcer of other site, stage 3; L89.223 Pressure ulcer of left hip, stage 3; S71.112A Laceration without foreign body, left thigh, initial encounter; I87.2 Venous insufficiency (chronic) (peripheral); I10 Essential (primary) hypertension; Q05.2 Lumbar spina bifida with hydrocephalus; E66.01 Morbid (severe) obesity due to excess calories; Z68.42 Body mass index [BMI] 45.0-49.9, adult; X58.XXXA Exposure to other specified factors, initial encounter; Y93.89 Activity, other specified; Y92.89 Other specified places as the place of occurrence of the external cause; Y99.8 Other external cause status ==

== ENCOUNTER → 2018-05-10 | Outpatient (CLI) | payer OTHER, BC | LOC: HYPER 06:45 | DX: L89.223 Pressure ulcer of left hip, stage 3 (principal); S71.112D Laceration without foreign body, left thigh, subsequent encounter; L89.893 Pressure ulcer of other site, stage 3; Q05.2 Lumbar spina bifida with hydrocephalus; I10 Essential (primary) hypertension; I87.2 Venous insufficiency (chronic) (peripheral); E66.01 Morbid (severe) obesity due to excess calories; Z68.42 Body mass index [BMI] 45.0-49.9, adult; X58.XXXD Exposure to other specified factors, subsequent encounter ==

== ENCOUNTER 2018-05-16 06:59 | Inpatient (IN) | payer OTHER, BC ==
[~2018-05-16] VITALS: Ht 167.6 cm; Wt 136.1 kg
--- NOTE | ~2018-05-16 | O ---
[facility] [place] [address] OPERATIVE REPORT Name: ROBERT CASTELLON Room #: 421-P [facility]..#: [id number] Admission: 05/16/18 Attend Phys: Patrice Macdonald MD, F Discharge: Date of : 74 Report #: [id number] THIS REPORT FOR: //name// CC: Geno Macdonald DATE OF SERVICE: 05/16/2018 SURGEON: Patrice Macdonald MD POWER ORIGINATOR: None. PREOPERATIVE DIAGNOSES: 1. Chronic nonhealing left posterior thigh wound. 2. Spina bifida with paraplegia. 3. Morbid obesity (BMI 45). 4. Hypertension. POSTOPERATIVE DIAGNOSES:. 1. Chronic nonhealing left posterior thigh wound. 2. Spina bifida with paraplegia. 3. Morbid obesity (BMI 45). 4. Hypertension. PROCEDURE: 1. Excisional and ultrasonic debridement of chronic stage 3 left posterior thigh wound including skin and subcutaneous tissue (starting measurement 143 cm2; ending measurement 270 cm2). 2. Application of skin substitute (Interfyl plus PriMatrix) -- 270 cm2. ANESTHESIA: General endotracheal anesthesia and local anesthetic. ESTIMATED BLOOD LOSS: 50 mL. SPECIMEN: Left posterior thigh skin and subcutaneous tissue. COMPLICATIONS: None appreciated. INDICATIONS FOR PROCEDURE: This is a 47-year-old male patient with history of spina bifida and paraplegia who has had difficulty with a left posterior thigh wound for several years. He has undergone local wound care as well as excision with skin grafting in the past; however, he has been unable to heal this area. His wound has become chronic and draining with no significant infection. He presents today for excision of the wound with ultrasonic debridement and [address] [address] OPERATIVE REPORT Name: ROBERT CASTELLON Room #: 421-P [facility]..#: [id number] Admission: 05/16/18 Attend Phys: Patrice Macdonald MD, F Discharge: Date of : 74 Report #: [id number] application of skin substitute for wound coverage. OPERATIVE FINDINGS: The initial measurements of the wound were 11 cm long x 13 cm wide; ending measurements were 15 cm long x 18 cm wide (270 cm2). There was good bleeding from the wound bed with good hemostasis prior to application of the skin substitute. Immediately following the procedure, the wound nurse was able to place a wound VAC at negative 75 mmHg pressure. No other significant pathology was identified. There was no gross infection seen and no malodorous drainage and all remaining tissue appeared viable. At the conclusion of the operation, sponge, needle and instrument counts were correct. DESCRIPTION OF PROCEDURE IN DETAIL: After the risks, benefits, and expectations of the operation were discussed in detail with the patient, informed consent was obtained. The patient was identified in the preoperative holding area. He was given IV antibiotics as documented in the chart in line with SCIP metrics. The patient was then taken to the operating room. He was placed in the supine position. SCDs were placed on the patient's bilateral lower extremities and pneumatic compression was initiated. The patient was then given IV sedation, and he was intubated without incident. He was then placed on the operating table in the prone position. His left posterior thigh was prepped and draped in the standard sterile fashion. A time-out was performed to identify the correct patient and procedure. Local anesthetic was infiltrated into the skin and subcutaneous tissue surrounding the wound as well as including the skin bridges that were present. Bleeding was noted from the puncture sites. A sharp #10 blade scalpel was then used to make an incision around the entire wound. Electrocautery was used to dissect and excise the superficial layer of tissue including skin and subcutaneous tissue with no dissection down to the muscle. Bleeding points were made hemostatic with electrocautery during the dissection. The excised tissue was sent for specimen. Most of the bleeding occurred from the skin edges. This was made hemostatic with electrocautery. The Channelkit ultrasonic debridement device was then used to mechanically debride the entire wound surface area. A gentle ooze of blood was present after using this device. There was good cavitation of the nonviable tissue, which would also help to decrease the bacterial load. Bleeding points were again made hemostatic with electrocautery. 5000 units of thrombin was then applied to the wound bed and edges of the wound to ensure hemostasis. After ensuring hemostasis, human connective tissue matrix (Interfyl 1.5 mL x 2 vials) was applied to the wound edges and wound bed. The material was spread throughout the wound with the back end of a forceps. Fenestrated PriMatrix Ag was then placed over the wound and sutured around the edges. The entire wound surface area was covered with the graft (two 8 x 8 cm grafts were used to cover the entire wound). The mid portions of the mesh were also adhered to the [facility] [address] [place] [address] OPERATIVE REPORT Name: ROBERT CASTELLON #: 421-P [facility]#: [id number] Admission: 05/16/18 Attend Phys: Patrice Macdonald MD, F Discharge: Date of : 74 Report #: [id number] underlying tissue with simple interrupted 3-0 Vicryl sutures similar to that used for approximation around the edges of the graft. After ensuring final hemostasis, the wound was dressed with Adaptic and covered with a negative pressure wound VAC (placed by the wound care nurse). The patient tolerated the procedure well. He was returned to the supine position, awakened, extubated, and taken to recovery room in stable condition with no apparent intraoperative complications. By: [id number] Patrice Macdonald MD, FACS /nt
[2018-05-16 08:04] VITALS: BP 117/74
[2018-05-16 08:04] LABS: HEMATOCRIT 32.7 % (42.0-52.0); HEMOGLOBIN 10.1 gm/dL (14.0-18.0); MCH 19.4 pg (26.0-34.0); MCHC 30.8 g/dL (28.0-37.0); RBC 5.2 mil/uL (4.50-6.00); RDW 21.9 % (10.5-14.5); WBC 6.3 thou/uL (4.0-11.0)
[2018-05-16 08:12] LABS: CALCIUM 8.5 mg/dL (8.5-10.1); CREATININE 0.9 mg/dL (0.7-1.3)
[2018-05-16 13:52] VITALS: BP 107/59
[2018-05-16 13:55] VITALS: BP 107/67
--- NOTE | 2018-05-16 15:23 | NUR ---
RECEIVED PT FROM OR. A/O. PAIN RELIEVED BY MEDS ORDERED. NO NOTED SOA. NO NV. PT RESTING IN BED APPEARS COMFORTABLE. PT SELF CATHS. WOUND VAC INTACT. WILL CONT. TO MONITOR.
--- NOTE | 2018-05-16 15:31 | NUR ---
INITIAL ASSESSMENT: Pt evaluated for d/c planning needs. Reviewed chart and spoke with nurse and pt. Pt is alert and oriented. Pt has been hospitalized in the past at [facility] and returned home with [facility]. Pt said he is no longer on service with them, but is current with [facility]. Pt has w/c and grab bars at home. Pt lives alone and was able to manage on his own. Pt is able to transfer himself. Pt has history of spina bifida. Pt said he has been to [facility] in the past, and would prefer not returning there. Pt has been to [facility] in the past, and wants to go there on d/c from hospital. Asked service planner to fax referral. Will remain available to assist as needed.
--- NOTE | 2018-05-16 16:00 | NUR ---
FAXED REFERRAL TO [facility] SPOKE WITH RUDY IN ADM. SHE RECEIVED REFERRAL WILL FAX MORE CLINICAL INFO. ONCE AVAILABLE. PT. JUST HAD SURGERY TODAY. ANTICIPATE DC FRIDAY 05/19. DCP TO FOLLOW.
[2018-05-16 19:15] VITALS: BP 102/56
--- NOTE | 2018-05-17 02:42 | NUR ---
PT C/O PAIN ON HIS LOWER BACK,MANAGED WITH PO MED.PT SELF CATHS SELF WHILE IN BED.WOUND VAC IN PLACE.PT REPOSITIONED WHILE IN BED.PT RESTING COMFROTABLY ON HIS BED AT THIS TIME.CALL LIGHT WITHIN REACH.
[2018-05-17 03:47] VITALS: BP 95/54
[2018-05-17 06:15] LABS: ABSOLUTE NEUTROPHILS 3.5 thou/uL (1.4-8.2); BASOPHILS 1.3 % (0.0-2.0); EOSINOPHILS 6.3 % (0.0-3.0); HEMATOCRIT 29.6 % (42.0-52.0); HEMOGLOBIN 8.9 gm/dL (14.0-18.0); MCH 19.3 pg (26.0-34.0); MCHC 30.2 g/dL (28.0-37.0); MCV 63.9 fL (80.0-100.0); MONOCYTES 6.7 % (1.0-8.0); PLATELET COUNT 544 thou/uL (150-400); POLYS 50.7 % (36.0-66.0); RBC 4.64 mil/uL (4.50-6.00); WBC 6.9 thou/uL (4.0-11.0)
[2018-05-17 06:25] LABS: CALCIUM 8.2 mg/dL (8.5-10.1); CREATININE 1.1 mg/dL (0.7-1.3); POTASSIUM 4.1 mmol/L (3.5-5.1)
[2018-05-17 07:25] VITALS: BP 99/50
[2018-05-17 08:33] LABS: ANISOCYTOSIS 2+; HYPOCHROMASIA 1+; MICROCYTES 2+; PLATELET ESTIMATE INCREASED
--- NOTE | 2018-05-17 11:25 | NUR ---
WOUND CONSULT: PT. WAS SEEN TODAY BY DR. ACOSTA AND MYSELF. PT. WAS TAKEN TO THE OR YESTERDAY BY DR. SUMMERS. WOUND VAC WAS APPLIED IN THE OR POST DEBRIDEMENT BY SAFETY INTERN. TODAY WOUND VAC IS C/D/I. RECOMMENDATIONS: CONTINUE WITH WOUND VAC THERAPY. PT. AND STAFF NURSE WERE INSTRUCTED ON PLAN OF CARE.
--- NOTE | 2018-05-17 12:09 | NUR ---
Assess due to chronic stage III thigh ulcer requiring surgical debridement. Hx spina bifida and bilateral LE paraplegia. Eats well, wts consistent, class III extreme obesity. Likes double meat portions and willing to drink boost. Low nutrition risk with appropriate nutrition interventions in place
--- NOTE | 2018-05-17 12:14 | NUR ---
Assess due to chronic thigh ulcer with need for debridement. Hx spina bifida and bilateral LE paraplegia. Eats well. Wt class III extreme obesity with BMI 48. Will add alex bid, otherwise low nutrition risk
--- NOTE | 2018-05-17 16:08 | PATH ---
[facility] [address] [place] [address] PATHOLOGY RPT PROCEDURE Name: CHRIS ALFORD Room #: 421-P [facility] M.R.#: [id number] Admission: 05/16/18 Date of : 74 Discharge: Report #: [id number] Path Case #: [id number] [facility] Accession Number: [id number] . 01 Material submitted: . LEFT POSTERIOR THIGH WOUND . 01 Clinical history: . Pressure ulcer buttocks, wound abscess . 02 Diagnosis: Skin and subcutaneous tissue, left posterior thigh wound, debridement: - Ulceration associated with fibrinoid degeneration, marked acute inflammation extending into subcutaneous tissue, consistent with wound. (IUV:vicky; 05/17/2018) QMS/05/17/2018 . 02 Electronically signed: . Amira Phillips MD, Pathologist NPI- [id number] . 01 Gross description: . The specimen is received in formalin, labeled "Chris Alford, left posterior thigh wound" and consists of an ovoid segment of pink-fernandez ulcerated skin measuring 14.5 x 11.0 x 1.0 cm. Finishing Inspector sections are submitted in A1. (SDY; 05/16/2018) SYU/SYU . 02 Pathologist provided ICD-10: L89.159, L08.9 . 02 CPT . 494237 Specimen Comment: A courtesy copy of this report has been sent to Specimen Comment: [phone], . Specimen Comment: Report sent to and Performed at: [address], [place] [id number] MD Jose Angel Felton MD Phone: [phone] Performed at: [address] [id number] MD Amira Phillips MD Phone: [phone]
[2018-05-17 19:55] VITALS: BP 133/73
--- NOTE | 2018-05-18 03:24 | NUR ---
PT DENIED PAIN SO FAR.WOUND VAC HAD A LEAK,WAS REINFORCED BUT DRSG DIDN'T STAY SO DRSG WAS SWITCHED TO WET TO DRY.PT REPOSITIONED IN BED PER HIS REQUEST.PT REQUESTED FOR AND RECEIVED [employer] FOR CONSTIPATION.PT RESTING ON HIS BED AT THIS TIME.CALL LIGHT WITHIN REACH.
[2018-05-18 05:30] VITALS: BP 91/54
[2018-05-18 05:35] LABS: ABSOLUTE NEUTROPHILS 3.5 thou/uL (1.4-8.2); BASOPHILS 1.2 % (0.0-2.0); EOSINOPHILS 6.7 % (0.0-3.0); HEMATOCRIT 27.3 % (42.0-52.0); HEMOGLOBIN 8.3 gm/dL (14.0-18.0); LYMPHOCYTES 26.2 % (24.0-44.0); MCH 19.2 pg (26.0-34.0); MCHC 30.3 g/dL (28.0-37.0); MCV 63.4 fL (80.0-100.0); MONOCYTES 8.6 % (1.0-8.0); PLATELET COUNT 513 thou/uL (150-400); POLYS 57.3 % (36.0-66.0); RBC 4.31 mil/uL (4.50-6.00); RDW 21.5 % (10.5-14.5); WBC 6.2 thou/uL (4.0-11.0)
[2018-05-18 05:45] LABS: CREATININE 0.8 mg/dL (0.7-1.3); POTASSIUM 3.6 mmol/L (3.5-5.1)
[2018-05-18 07:30] VITALS: BP 104/63
--- NOTE | 2018-05-18 09:53 | NUR ---
WOUND FOLLOW UP: PT. WAS SEEN TODDAY BY DR. ACOSTA AND MYSELF. PT. WOUND VAC WAS REMOVED DUE TO FAILURE TO MAINTAIN SUCTION. DR. ACOSTA DISCUSSED RISK AND BENIFIT WITH PATIENT AND AT THIS TIME IT WAS DECIDED THAT NEW ORDERS FOR WOUND CARE WOULD BE PLACED AND PT. WOUND NO LONGER BE ON WOUND VAC THERAPY. RECOMMENDATIONS: CONTINUE WITH CURRENT PLAN OF CARE. PT. AND STAFF NURSE WERE INSTRUCTED ON PLAN OF CARE.
--- NOTE | 2018-05-18 15:13 | NUR ---
PT HAD SMALL HARD BM AFTER PERFOMING DIGITAL STIMULI STATED HE USUALLY DOES THIS AT HOME WHILE IN SHOWER CHAIR, REQUESTED TO TRY AGAIN TONIGHT. WOUND VAC REMOVED FROM L THIGH AND REPLACED WITH W/D DRSG PER WOUND CARE TEAM.
--- NOTE | 2018-05-18 15:17 | NUR ---
FAXED CLINICAL UPDATE TO [facility]. LEFT MSG WITH RUDY IN ADM, THAT PT. DISCHARGING TOMORROW. NURSE TO FAX DC ORDERS TO [phone] AND CALL REPORT TO [phone]. THEY SHOULD BE ABLE TO PROVIDE TRANSPORTATION.
[2018-05-18 16:10] VITALS: BP 107/60
[2018-05-18 20:26] VITALS: BP 87/45
[2018-05-19 00:21] VITALS: BP 100/55
--- NOTE | 2018-05-19 01:10 | NUR ---
Assumed care of pt at 1900. Pt alert and oriented x4. Paraplegic. Performs self-cath. No c/o pain. Dressing on left thigh clean and intact. Q2h turn. Digital stimulation performed. Small ammount of formed stool extracted. Plan is to DC to [facility] in am. Fall precautions in place. Pt calls appropriately. Will continue to monitor and assist with needs.
--- NOTE | 2018-05-19 07:16 | NUR ---
ASSUMED PT CARE AT APPROX 0300,PT WAS OBSERVED SLEEPING ON HIS R SIDE AT TE TIME.DRSG C/D/I.NO CONCERNS NOTED.WILL GIVE REPORT TO AM NURSE.
[2018-05-19 07:40] VITALS: BP 109/56
[2018-05-19 09:59] VITALS: BP 109/56
--- NOTE | 2018-05-21 07:32 | HC ---
[facility] [place] [address] CONSULTATION Name: ROBERT CASTELLON Room #: 421-P [facility] IN M.R.#: [id number] Admission: 05/16/18 Attend Phys: Heriberto Billings MD Discharge: 05/19/18 Date of : 74 Report #: [id number] THIS REPORT FOR: //name// CC: Geno Billings DATE OF SERVICE: 05/17/2018 CHIEF COMPLAINT: Left posterior thigh pressure ulceration. HISTORY OF PRESENT ILLNESS: This is a 47-year-old white male patient, known to the Wound Care Service. He has been followed for some time for multiple refractory stage 3 pressure ulceration to his left posterior thigh. It was arranged for him to have an operative debridement and placement of a skin substitute, which he underwent yesterday with Dr. Patrice Macdonald. The patient tolerated the procedure well. A wound VAC was placed over the graft site, and he has been admitted to the hospital. We are looking for him to transition to a rehab facility for additional strengthening and activity of daily life skill training. PAST MEDICAL HISTORY: Positive for history of spina bifida with paraplegia. He has morbid obesity, hypertension and the chronic ulceration on his left posterior thigh. ALLERGIES: VANCOMYCIN. FAMILY HISTORY: Noncontributory. SOCIAL HISTORY: Negative for current alcohol or tobacco use. He has been living at home. He is not certain that he is able to entirely care for himself, especially given his significant obesity. REVIEW OF SYSTEMS: CONSTITUTIONAL: The patient denies fever, chills or weight loss. NEUROLOGICAL: The patient does have paraplegia. Denies new focal weakness, numbness, tingling. EYES: The patient denies visual changes, redness or drainage. ENT: The patient denies earache, nasal drainage, sore throat. CARDIOVASCULAR: The patient denies chest pain or palpitations, diaphoresis. PULMONARY: The patient denies cough or shortness of breath. GASTROINTESTINAL: The patient denies nausea, vomiting or abdominal pain. ORTHOPEDIC: The patient is aware of the ulceration on his left posterior thigh. Other systems in a 14-point review of systems are negative. PHYSICAL EXAMINATION: VITAL SIGNS: At this time include pulse 66, respirations 21, blood pressure [address] [address] CONSULTATION Name: ROBERT CASTELLON Room #: 421-P [facility] IN M.R.#: [id number] Admission: 05/16/18 Attend Phys: Heriberto Billings MD Discharge: 05/19/18 Date of : 74 Report #: [id number] 99/50, temperature 97.5. GENERAL: This is a chronically ill-appearing male patient who appears to be in minimal distress. HEENT: Normocephalic. Nose and throat are clear. NECK: Supple. LUNGS: Clear. ABDOMEN: Soft. Bowel sounds present. EXTREMITIES: Examination of the lower extremities demonstrates the surgical dressing with a wound VAC in place on the left posterior thigh. There was good seal noted at this time and does not appear to be significant bleeding. NEUROLOGIC: The patient has paraplegia. He is awake, alert and oriented and appropriate. LABORATORY DATA: Includes sodium 136, potassium 4.1, chloride 104, CO2 of 23, BUN 13, creatinine 1.1, glucose of 90, calcium is 8.2. White blood cell count of 6.9, with a hemoglobin 8.9. CLINICAL IMPRESSION: 1. Stage 3 pressure ulcer of the left posterior thigh, status post surgical debridement and placement of PriMatrix skin substitute. 2. Paraplegic secondary to spina bifida. 3. Super morbid obesity. 4. Hypotension. RECOMMENDATIONS: At this point in time, the patient placed in the low air loss mattress. He will need every 2 hour turning and repositioning and offloading of the surgical site. He will need Prevalon boots while in bed for pressure prophylaxis. We will recommend aggressive nutritional support. He would be benefited by weight loss, although this may be a long-term goal. He would benefit from rehabilitation and snf care following discharge. The patient is agreeable with this plan of care. We will keep the wound VAC in place for now. Plan to change it out again tomorrow. <ELECTRONICALLY SIGNED> By: You Cabello MD 05/21/18 0732 [id number] You Cabello MD /nt
== END 2018-05-19 15:59 | DRG 574 ==
LOC: OR 06:59 → TBA 06:59 → 4E 13:01 → OR 17:01 → 4E 17:02
PROVIDERS: Anesthesiology; Surgery; ADMIT Internal Medicine
PROC: 0HRJXK3 Replacement of Left Upper Leg Skin with Nonautologous Tissue Substitute, Full Thickness, External Approach (ICD-10-PCS; principal; 2018-05-16)
PROC: 0JBM0ZZ Excision of Left Upper Leg Subcutaneous Tissue and Fascia, Open Approach (ICD-10-PCS; principal; 2018-05-16)
DX: L89.893 Pressure ulcer of other site, stage 3 (principal); G82.20 Paraplegia, unspecified; Z68.42 Body mass index [BMI] 45.0-49.9, adult; I10 Essential (primary) hypertension; I95.9 Hypotension, unspecified; E66.01 Morbid (severe) obesity due to excess calories; Q05.9 Spina bifida, unspecified; Z86.718 Personal history of other venous thrombosis and embolism; Z79.01 Long term (current) use of anticoagulants; Z79.899 Other long term (current) drug therapy; Z88.1 Allergy status to other antibiotic agents
CPT/HCPCS: 10783; 50010; 50101; 50366; 50386; 50403; 50643; 56524; 56526; 57143; 57192; 62110; 62900; 70005

== ENCOUNTER → 2018-09-06 | Outpatient (CLI) | payer OTHER, BC ==
[~2018-09-06] MED LIST changes: +AUGMENTIN 875-1 EACH PO; +HYDROCORTISO28.35 G1
== END ==
LOC: HYPER 06-21 14:44
DX: L89.223 Pressure ulcer of left hip, stage 3 (principal); L89.893 Pressure ulcer of other site, stage 3; Q05.2 Lumbar spina bifida with hydrocephalus; E66.01 Morbid (severe) obesity due to excess calories; R60.0 Localized edema; I10 Essential (primary) hypertension; I87.2 Venous insufficiency (chronic) (peripheral); Q05.9 Spina bifida, unspecified; Z68.42 Body mass index [BMI] 45.0-49.9, adult

== ENCOUNTER → 2018-09-12 | Outpatient (CLI) | payer OTHER, BC | LOC: HYPER 07:00 | DX: L89.223 Pressure ulcer of left hip, stage 3 (principal); L89.893 Pressure ulcer of other site, stage 3; S71.112D Laceration without foreign body, left thigh, subsequent encounter; E66.01 Morbid (severe) obesity due to excess calories; Q05.2 Lumbar spina bifida with hydrocephalus; I10 Essential (primary) hypertension; I87.2 Venous insufficiency (chronic) (peripheral); R60.0 Localized edema; Z68.42 Body mass index [BMI] 45.0-49.9, adult; X58.XXXD Exposure to other specified factors, subsequent encounter ==

== ENCOUNTER → 2018-09-19 | Outpatient (CLI) | payer OTHER, BC | LOC: HYPER 06:45 | DX: L89.893 Pressure ulcer of other site, stage 3 (principal); L89.223 Pressure ulcer of left hip, stage 3; S71.112D Laceration without foreign body, left thigh, subsequent encounter; E66.01 Morbid (severe) obesity due to excess calories; Q05.2 Lumbar spina bifida with hydrocephalus; R60.0 Localized edema; I10 Essential (primary) hypertension; Z68.42 Body mass index [BMI] 45.0-49.9, adult; X58.XXXD Exposure to other specified factors, subsequent encounter ==

== ENCOUNTER → 2018-09-26 | Outpatient (CLI) | payer OTHER, BC | LOC: HYPER 06:44 | DX: L89.223 Pressure ulcer of left hip, stage 3 (principal); Q05.2 Lumbar spina bifida with hydrocephalus; I10 Essential (primary) hypertension; I87.2 Venous insufficiency (chronic) (peripheral); R60.0 Localized edema; E66.01 Morbid (severe) obesity due to excess calories; Z68.42 Body mass index [BMI] 45.0-49.9, adult ==

== ENCOUNTER → 2018-10-03 | Outpatient (CLI) | payer OTHER, BC | LOC: HYPER 06:54 | DX: L89.223 Pressure ulcer of left hip, stage 3 (principal); S71.112D Laceration without foreign body, left thigh, subsequent encounter; I10 Essential (primary) hypertension; Q05.2 Lumbar spina bifida with hydrocephalus; I87.2 Venous insufficiency (chronic) (peripheral); E66.01 Morbid (severe) obesity due to excess calories; R60.0 Localized edema; Z68.42 Body mass index [BMI] 45.0-49.9, adult; X58.XXXD Exposure to other specified factors, subsequent encounter ==

== ENCOUNTER → 2018-10-09 | Outpatient (CLI) | payer OTHER, BC | LOC: HYPER 06:40 | DX: L89.223 Pressure ulcer of left hip, stage 3 (principal); S71.112D Laceration without foreign body, left thigh, subsequent encounter; Q05.2 Lumbar spina bifida with hydrocephalus; I10 Essential (primary) hypertension; I87.2 Venous insufficiency (chronic) (peripheral); E66.01 Morbid (severe) obesity due to excess calories; R60.0 Localized edema; Z68.42 Body mass index [BMI] 45.0-49.9, adult; X58.XXXD Exposure to other specified factors, subsequent encounter ==

== ENCOUNTER → 2018-10-24 | Outpatient (CLI) | payer OTHER, BC | LOC: HYPER 06:40 | DX: L89.223 Pressure ulcer of left hip, stage 3 (principal); S71.112D Laceration without foreign body, left thigh, subsequent encounter; Q05.2 Lumbar spina bifida with hydrocephalus; I10 Essential (primary) hypertension; I87.2 Venous insufficiency (chronic) (peripheral); R60.0 Localized edema; E66.01 Morbid (severe) obesity due to excess calories; Z68.42 Body mass index [BMI] 45.0-49.9, adult; X58.XXXD Exposure to other specified factors, subsequent encounter ==

== ENCOUNTER → 2018-10-30 | Outpatient (CLI) | payer OTHER, BC | LOC: HYPER 10-17 07:40 | DX: L89.223 Pressure ulcer of left hip, stage 3 (principal); L89.893 Pressure ulcer of other site, stage 3; S71.112D Laceration without foreign body, left thigh, subsequent encounter; I10 Essential (primary) hypertension; Q05.2 Lumbar spina bifida with hydrocephalus; Q05.9 Spina bifida, unspecified; I87.2 Venous insufficiency (chronic) (peripheral); E66.01 Morbid (severe) obesity due to excess calories; R60.0 Localized edema; Z68.42 Body mass index [BMI] 45.0-49.9, adult; X58.XXXD Exposure to other specified factors, subsequent encounter ==

== ENCOUNTER → 2018-11-08 | Outpatient (CLI) | payer OTHER, BC | LOC: HYPER 06:30 | DX: L89.223 Pressure ulcer of left hip, stage 3 (principal); L89.893 Pressure ulcer of other site, stage 3; Q05.2 Lumbar spina bifida with hydrocephalus; I10 Essential (primary) hypertension; I87.2 Venous insufficiency (chronic) (peripheral); E66.01 Morbid (severe) obesity due to excess calories; R60.0 Localized edema; Z68.42 Body mass index [BMI] 45.0-49.9, adult ==

== ENCOUNTER → 2018-11-15 | Outpatient (CLI) | payer OTHER, BC | LOC: HYPER 06:54 | DX: L89.223 Pressure ulcer of left hip, stage 3 (principal); L89.893 Pressure ulcer of other site, stage 3; Q05.2 Lumbar spina bifida with hydrocephalus; I10 Essential (primary) hypertension; I87.2 Venous insufficiency (chronic) (peripheral); E66.01 Morbid (severe) obesity due to excess calories; R60.0 Localized edema; Z68.42 Body mass index [BMI] 45.0-49.9, adult ==

== ENCOUNTER → 2018-11-28 | Outpatient (CLI) | payer OTHER, BC | LOC: HYPER 11-22 09:17 | DX: L89.223 Pressure ulcer of left hip, stage 3 (principal); L89.893 Pressure ulcer of other site, stage 3; Q05.2 Lumbar spina bifida with hydrocephalus; E66.01 Morbid (severe) obesity due to excess calories; R60.0 Localized edema; I10 Essential (primary) hypertension; Z68.42 Body mass index [BMI] 45.0-49.9, adult ==

== ENCOUNTER → 2018-12-06 | Outpatient (CLI) | payer OTHER, BC | LOC: HYPER 06:57 | DX: L89.223 Pressure ulcer of left hip, stage 3 (principal); L89.893 Pressure ulcer of other site, stage 3; Q05.2 Lumbar spina bifida with hydrocephalus; I87.2 Venous insufficiency (chronic) (peripheral); E66.01 Morbid (severe) obesity due to excess calories; R60.0 Localized edema; Z68.42 Body mass index [BMI] 45.0-49.9, adult ==

== ENCOUNTER → 2018-12-19 | Outpatient (CLI) | payer OTHER, BC | LOC: HYPER 12-12 10:04 | DX: L89.223 Pressure ulcer of left hip, stage 3 (principal); L89.893 Pressure ulcer of other site, stage 3; S71.112A Laceration without foreign body, left thigh, initial encounter; E66.01 Morbid (severe) obesity due to excess calories; I10 Essential (primary) hypertension; R60.0 Localized edema; Q05.2 Lumbar spina bifida with hydrocephalus; X58.XXXA Exposure to other specified factors, initial encounter; Y93.89 Activity, other specified; Y92.89 Other specified places as the place of occurrence of the external cause; Y99.8 Other external cause status ==

== ENCOUNTER → 2019-01-10 | Outpatient (CLI) | payer OTHER, BC | LOC: HYPER 01-08 14:06 | DX: L89.223 Pressure ulcer of left hip, stage 3 (principal); L89.893 Pressure ulcer of other site, stage 3; S71.112D Laceration without foreign body, left thigh, subsequent encounter; I10 Essential (primary) hypertension; I87.2 Venous insufficiency (chronic) (peripheral); Q05.2 Lumbar spina bifida with hydrocephalus; E66.01 Morbid (severe) obesity due to excess calories; R60.0 Localized edema; Z68.42 Body mass index [BMI] 45.0-49.9, adult; X58.XXXD Exposure to other specified factors, subsequent encounter ==

== ENCOUNTER 2019-01-13 16:41 | Inpatient (IN) | payer OTHER, BC ==
[~2019-01-13] VITALS: Ht 162.6 cm; Wt 113.1 kg
[2019-01-13 16:20] VITALS: BP 130/83
[2019-01-13 19:04] LABS: HEMATOCRIT 30.3 % (42.0-52.0); MCH 17.8 pg (26.0-34.0); MCHC 29.6 g/dL (28.0-37.0); RBC 5.05 mil/uL (4.50-6.00); WBC 9.3 thou/uL (4.0-11.0)
[2019-01-13 19:13] LABS: CALCIUM 7.9 mg/dL (8.5-10.1); CREATININE 0.9 mg/dL (0.7-1.3); POTASSIUM 3.9 mmol/L (3.5-5.1)
--- NOTE | 2019-01-13 19:18 | NUR ---
Pt direct admit from Dr Torres office approx 1630. Alert and oriented x4. Pt has pressure wound in lt buttock/upper thigh. Pictures taken and in chart, wound consult ordered. Hospitalist saw pt in room. Surgery consulted. Midline placed by IV team. Pt straight caths himself. Denies pain. Call light within reach. Report given to gracie IRIZARRY.
[2019-01-13 19:40] VITALS: BP 128/75
--- NOTE | 2019-01-14 01:50 | NUR ---
ASSUMED PT CARE 1899. PT ALERT AND ORIENTED. REASSESSMENT COMPLETE. VSS. DENIES PAIN, DENIES N/V. PATIENT TURNS SELF. SURGERY SCHEDULED FOR LATE AM, NPO AT [place]. CALL LIGHT AND PERSONAL BELONIGNS WITHIN REACH, WILL CONTINUE POC UNTIL EOS.
[2019-01-14 04:05] VITALS: BP 95/53
[2019-01-14 07:40] VITALS: BP 123/71
--- NOTE | 2019-01-14 09:48 | NUR ---
PT RESTING IN BED AWAITING SURGERY.HAS BEEN NPO SINCE MIDNIGHT. SELF CATH. PT TO GO TO [facility] AT APPROX 1100. PT W/O PAIN AT PRESENT. CONT ON ROOM AIR.
--- NOTE | 2019-01-14 14:40 | NUR ---
INITIAL ASSESSMENT: OLIVIA reviewed chart and spoke with nursing and attending physician. Pt was admitted from wound care office. Pt is scheduled to have excisional debridement and diverting colostomy placement today per surgery. Pt with hx of spina bifida. OLIVIA met with pt and his father at bedside. Introduced role of SW. Pt is alert/orientated x 4. Pt lives at home with family. Pt has a scooter, hospital bed, trapeze, shower chair. Pt has been to [facility] in August of this year. Pt wants to go back there when discharged from the hospital. Pt s PCP is Dr Geno Bates. senior buyer planner to fax referral to [facility] for review. SW notified [facility] admissions and liaison of new referral. OLIVIA is following to assist as needed with discharge planning.
--- NOTE | 2019-01-14 14:58 | NUR ---
FAXED REFERRAL TO [facility] FOR SKILLED STAY RECEIVED CONFIRMATION AND LEFT MSG WITH RUDY IN ADM THAT PT JUST ADMITTED AND WILL BE HERE FOR A FEW DAYS. DCP TO FOLLOW.
--- NOTE | 2019-01-14 16:25 | NUR ---
PT LEFT FOR SURGERY THIS AM AND IS NOT BACK TO ROOM OF THIS TIME.
[2019-01-14 19:10] VITALS: BP 130/89
--- NOTE | 2019-01-14 19:56 | NUR ---
PT RETURNED TO ROOM FROM POST OP AT SHIFT CHANGE. VS 98.6 16 78 124/72 CLEAR LIQUIDS ORDERED AT 1945 PATIENT'S FAMILY MEMBER HIS DAD ASKED IF HE WAS GOING TO GET CARE. THIS NURSE ACKNOWLEDGED ORDERS AND CALLED TO ASK PHARMIST TO VERIFY ORDERS. GAVE PATIENT SPRITE AND CLEAR LIQUID DIET MENU.
--- NOTE | 2019-01-14 20:36 | NUR ---
AT THIS TIME PATIENT GIVEN PRN IV PAIN MED PRN MED FOR INDIGESTION. PT DRSG CLEANED AND COVERED BED LINENS CHANGED. PT STATES FEELS BETTER BUT WANTS PO PAIN MED NOC NURSE WILL CALL. PATIENTS FATHER SEEMS FRIENDLIER AT THIS TIME,
[2019-01-14 20:50] VITALS: BP 116/87
[2019-01-14 23:35] VITALS: BP 123/82
[2019-01-15 03:20] VITALS: BP 102/65
--- NOTE | 2019-01-15 04:52 | NUR ---
ASSUMED PT CARE 1899. PT ALERT AND ORIENTED. REASESSMENT COMPLETE, VSS. REPORTS PAIN, SEE SERA TAVERAS N/V. 3 LAP SITES WITH DERMABOND. MIDLINE INSICIION DRESSING C/D/I. ROMEO IN PLACE. NEW COLOSTOMY, STOMA BEEFY AND RED. DRESSING TO L THIGH WOUND C/D/I. CALL LIGHT AND PERSONAL BELONINGS WITHIN REACH, WILL CONTINUE POC UNTIL EOS.
[2019-01-15 08:11] VITALS: BP 122/85
[2019-01-15 08:52] LABS: HEMATOCRIT 29.6 % (42.0-52.0); HEMOGLOBIN 8.7 gm/dL (14.0-18.0); MCH 17.5 pg (26.0-34.0); MCHC 29.4 g/dL (28.0-37.0); MCV 59.5 fL (80.0-100.0); PLATELET COUNT 575 thou/uL (150-400); RBC 4.97 mil/uL (4.50-6.00); RDW 21.2 % (10.5-14.5); WBC 11.2 thou/uL (4.0-11.0)
[2019-01-15 08:55] LABS: CALCIUM 8.5 mg/dL (8.5-10.1); CREATININE 1.1 mg/dL (0.7-1.3); POTASSIUM 4.9 mmol/L (3.5-5.1)
[2019-01-15 10:24] LABS: ABSOLUTE NEUTROPHILS 8.8 thou/uL (1.4-8.2)
[2019-01-15 10:30] LABS: ANISOCYTOSIS 2+; MICROCYTES 2+
[2019-01-15 10:31] LABS: HYPOCHROMASIA 2+
[2019-01-15 12:44] LABS: ATYPICAL LYMPHS 2 %
--- NOTE | 2019-01-15 13:17 | NUR ---
Assumed care of pt at 0700. Pt a&ox4. Post-op day #1. Pain controlled with prn pain medications. Colostomy in place. Garcia catheter in place. Dressing on left upper thigh changed. Low airloss pump applied to bed. Dressing on abd clean and intact. Diet advanced to full liquids. Tolerated well. Tums administered for acid reflux. Call light within reach. Will continue to monitor.
[2019-01-15 13:33] LABS: FOLIC ACID 14.1 ng/mL (8.6-58.9)
--- NOTE | 2019-01-15 13:37 | HC ---
[facility] [place] [address] CONSULTATION Name: ROBERT CASTELLON Room #: 423-1 ADM IN M.R.#: [id number] Admission: 01/13/19 Attend Phys: Radha Antonio MD Discharge: Date of : 74 Report #: [id number] THIS REPORT FOR: //name// CC: Radha Bates DATE OF SERVICE: 01/14/2019 PERSONAL PHYSICIAN: Anuel. CHIEF COMPLAINT: Chronic left posterior thigh wound in need of diverting colostomy. HISTORY OF PRESENT ILLNESS: This is a 48-year-old white male with history of spina bifida, paraplegia who I have been caring for several years for chronic ulceration on the left posterior thigh, which waxes and wanes in his ability to heal. Most recently, patient had a debridement and skin substitute placed in, which did help decrease the size of the wound; however, due to persistent fecal contamination, the wound kept getting infected and was unable to come to complete closure. At this time, it was felt the patient would benefit from a diverting colostomy to help prevent fecal contamination. The patient was seen in the office last week, was also found that the wound was slightly infected. The patient was started on oral antibiotics. The patient now is admitted for diverting colostomy per Dr. Macdonald. We have been asked to follow the wound while he is here in the hospital. The patient denies any other new or recent wounds. PAST MEDICAL HISTORY: Significant for spina bifida with a chronic ulceration on the left posterior thigh. History of previous decubitus ulcers on the feet, toes and heels. CURRENT MEDICATIONS: Multiple, I reviewed his medication list. DRUG ALLERGIES: VANCOMYCIN. SOCIAL HISTORY: The patient does not smoke or drink alcohol. The patient still resides independently. FAMILY HISTORY: Not pertinent to current medical condition. REVIEW OF SYSTEMS: CONSTITUTIONAL: The patient denies fevers or chills. NEUROLOGIC: The patient complains of mild generalized weakness, but no isolated weakness in arms. The patient is chronically paralyzed. EYES: No complaints. ENT: No complaints. [facility] [address] [place] [address] CONSULTATION Name: FELISHATUNDEROBERT ASHWIN Room #: 423-1 [facility] IN [facility]#: [id number] Admission: 01/13/19 Attend Phys: Radha Antonio MD Discharge: Date of : 74 Report #: [id number] CARDIAC: The patient denies chest pain, palpitations, peripheral edema. RESPIRATORY: The patient denies shortness of breath, cough or wheezes. GASTROINTESTINAL: The patient denies nausea, vomiting, abdominal pain. GENITOURINARY: The patient denies urgency or frequency. MUSCULOSKELETAL: No complaints. SKIN: There is a chronic ulceration in the left posterior thigh. PHYSICAL EXAMINATION: VITAL SIGNS: Temperature 36.7, pulse 88, respiratory rate 18, BP 122/85. GENERAL: This is an alert and oriented x 3, pleasant white male who is in no obvious distress. HEENT: Normocephalic, atraumatic. Mucous membranes are moist. Pupils are round. Sclerae white. NECK: Supple, nontender. LUNGS: Clear. HEART: Regular. ABDOMEN: Obese, soft, nontender. EXTREMITIES: The patient moves upper extremities without difficulty. The patient has minimal spontaneous movement of lower extremities. On the left posterior thigh, there is a chronic open wound, which is granulating with a periwound mild erythema and warmth. There is no significant tunneling or undermining. There is a moderate amount of serosanguineous drainage without significant odor. NEUROLOGIC: Cranial nerves 2-12 are grossly intact. Motor and sensory grossly intact. LABORATORY DATA: White count 9.3, hemoglobin 9.0. IMPRESSION: 1. Chronic ulceration, left posterior thigh consistent with a stage 3 decubitus ulcer. 2. Spina bifida with paraplegia and generalized debility. 3. History of protein-calorie malnutrition. PLAN: At this time, the patient will continue with Dakin's quarter strength wet to dry dressings to the left posterior thigh twice daily. The patient will be scheduled for diverting colostomy to assist in the prevention of fecal contamination of the wound. We will continue to maximize the patient's oral protein supplementation for healing. At the time of discharge, the patient will plan on skilled facility for continued rehabilitation and strengthening postoperatively and continued wound care. <ELECTRONICALLY SIGNED> By: Butch Torres MD 01/15/19 1337 [id number] Butch Torres MD /nt
[2019-01-15 16:18] VITALS: BP 107/69
[2019-01-15 18:36] VITALS: BP 111/74
[2019-01-15 20:35] VITALS: BP 108/59
[2019-01-16 03:45] VITALS: BP 114/67
--- NOTE | 2019-01-16 05:57 | NUR ---
ASSUMED PT CARE 1899. PT ALERT AND ORIENTED. REASSESSMENT, VSS. REPORTS PAIN, SEE EMAR. DENIES N/V. REPOSITINING FREQUENTLY. CALL LIGHT AND PERSONAL BELONIGNS WITHIN REACH, WILL CONTINUE POC UNTIL EOS.
[2019-01-16 07:50] VITALS: BP 122/74
--- NOTE | 2019-01-16 08:45 | NUR ---
ostomy care, pouch intact, small amt loose brown liq stool, stoma red viable budded, very receptive to education ostomy management and care, supplies and info left at bs, will cont to follow, clinical staff educator informed of status
--- NOTE | 2019-01-16 14:07 | PATH ---
[facility] [address] [place] [address] PATHOLOGY RPT PROCEDURE Name: CHRIS ALFORD Room #: 423-1 ADM IN M.R.#: [id number] Admission: 01/13/19 Date of : 74 Discharge: Report #: [id number] Path Case #: [id number] LCA Accession Number: [id number] . 01 Material submitted: . small bowel - SEGMENT OF SMALL BOWEL . 01 Clinical history: . Open superior posterior left thigh . 02 Diagnosis: Small bowel, resection: - Marked congestion with focal mild ischemic changes of the mucosa. - Extensive fibrous adhesions and congestion of the serosa. - Margins of resection viable and unremarkable. - Negative for dysplasia or malignancy. (IUV:database designer; 01/16/2019) MBR 01/16/2019 1324 Local . 02 Electronically signed: . Amira Phillips MD, Pathologist NPI- [id number] . 01 Gross description: . The specimen is received in formalin, labeled "Chris Alford, segment of small bowel". Received is an unoriented segment of small bowel measuring 5.3 cm in length by 1.8 cm in diameter. Both margins are stapled closed. The specimen is down to the fat wrapped displaying a slight amount of exposed pink-fernandez serosa. There is a full-thickness transmural defect measuring 1.3 cm, which is inked black. There is also a moderate amount of overlying adhesions. The attached mesenteric fat measures up to 1.9 cm in thickness. Opening the specimen reveals pink-fernandez mucosa with normal architectural folding. Sectioning through the attached mesenteric fat reveals no readily identifiable lymph nodes. The specimen is submitted representatively as follows: . A1-A2 both margins A3 care support representative sections through transmural defect A4 care support representative cross-sections of mucosa. (CAA; 01/15/2019) QAC/QA 01/15/2019 1102 Local . 02 Pathologist provided ICD-10: K66.0, K63.89 . 02 CPT . [id number] [address] [address] PATHOLOGY RPT PROCEDURE Name: CHRIS ALFORD Room #: 423-1 ADM IN M.R.#: [id number] Admission: 01/13/19 Date of : 74 Discharge: Report #: [id number] Path Case #: [id number] Specimen Comment: A courtesy copy of this report has been sent to Specimen Comment: [phone], , . Specimen Comment: Report sent to ,DR YE / DR BROWNING Performed at: [address], [place], [place] [id number] MD Jose Angel Felton MD Phone: [phone] Performed at: [address] [id number] MD Amira Phillips MD Phone: [phone]
[2019-01-16 15:54] VITALS: BP 116/77
[2019-01-16 19:34] VITALS: BP 122/65
--- NOTE | 2019-01-16 20:12 | NUR ---
Assumed care of pt at 0700. Pt a&ox4. Colostomy bag in place. Garcia catheter in place. Q2h turn. Dressing changed. Pain controlled with prn pain meds. Call light within reach. Will continue to monitor.
[2019-01-17 03:54] VITALS: BP 116/72
--- NOTE | 2019-01-17 05:52 | NUR ---
Assumed pt care at 1900. A/OX4,VSS. C/o abd 10/08,controlled with prn pain meds. Colostomy intact with moderate unformed stool,PO intake encouraged. Garcia patent draining yellow urine. Has a midline on LUE,patent with blood return noted.. Dressing on Left thigh C/D/I. Fall precautions in place,calls approp.
[2019-01-17 07:58] VITALS: BP 106/71
--- NOTE | 2019-01-17 09:38 | NUR ---
ostomy care; pouch changed using 2 piece system w/ adapt ring under wafer, stoma red viable budded, w/ small area brown slough top of stoma, peristomal skin intact, loose brown stool noted, very receptive to education, supplies and info at bs. secure start kit ordered for and sent to father's home per pt request, will cont to follow prn
--- NOTE | 2019-01-17 10:09 | NUR ---
PT RESTING IN BED WOUND CARE AND OSTOMY NURSE HERE TO SEE PATIENT. PT TOOK MIRALAX THIS AM PT PLEASANT AND COOPERATIVE WITH CARE. HAS COLOSTOMY AND ROMEO CATH.
[2019-01-17 11:17] LABS: CALCIUM 8.7 mg/dL (8.5-10.1); CREATININE 0.9 mg/dL (0.7-1.3); MAGNESIUM 2.1 mg/dL (1.8-2.4); POTASSIUM 3.6 mmol/L (3.5-5.1)
[2019-01-17 11:17] LABS: HEMATOCRIT 29.5 % (42.0-52.0); HEMOGLOBIN 8.7 gm/dL (14.0-18.0); MCH 17.7 pg (26.0-34.0); MCHC 29.6 g/dL (28.0-37.0); MCV 59.7 fL (80.0-100.0); RBC 4.93 mil/uL (4.50-6.00); RDW 21.7 % (10.5-14.5); WBC 8.4 thou/uL (4.0-11.0)
[2019-01-17] MEDS ORDERED: HYDROCODON-ACE1 EAC7 PO (12:05)
--- NOTE | 2019-01-17 13:06 | NUR ---
PT DISCHARGING TODAY TO [facility] FOR SKILLED STAY FAXED DC ORDERS/SUMMARY TO FACILITY SPOKE WITH RUDY IN ADM SHE RECEIVED DC ORDERS AND ARRANGED TRANSPORTATION BY WC VAN PT HAS OWN ELECTRIC WC IN . PT WILL NOTIFY FAMILY OF DC AND TIME OF TRANSPORT. UNIT NOTIFIED AND CHART COPY PER US. RN TO CALL REPORT TO [phone].
--- NOTE | 2019-01-17 13:42 | NUR ---
PT IS DISCHARGING TO [facility] TODAY. P/U AT 16:00. ROMEO CATH AND IV ACSESS DCD. PT GIVEN BED BATH. NO PAIN OR RESP DISTRESS AT THIS TIME.
--- NOTE | 2019-01-17 15:01 | NUR ---
CARE TEAM INDICATED THAT PT IS MEDICALLY STABLE TO DC TO [facility] THIS DAY. CHART COPY ORDERED. ORDERS TO BE FAXED. REPORT TO BE CALLED WI . TRANSPORT ARRANCED FOR 1600. PT AND FAMILT ARE AWARE AND AGREEABLE. NO OTHER CM INTERVENTION INDICATED. CASE CLOSED.
--- NOTE | 2019-01-17 15:51 | NUR ---
PATIENT LEFT AT THIS TIME LEFT IN HIS ELECTRIC W/C. ALL BELONGINGS INCLUDING CELL PHONE END MATCHER COMPUTER SANDRA SENT WITH PATIENT. PT W/O PAIN OR RESP DISTRESS AT DISCHARGE.
== END 2019-01-17 16:04 | DRG 571 ==
LOC: 4E 16:41
PROVIDERS: Internal Medicine; Surgery; ADMIT Internal Medicine
DX: L89.223 Pressure ulcer of left hip, stage 3 (principal); G82.20 Paraplegia, unspecified; Z68.41 Body mass index [BMI] 40.0-44.9, adult; R33.9 Retention of urine, unspecified; K59.00 Constipation, unspecified; E66.01 Morbid (severe) obesity due to excess calories; K66.0 Peritoneal adhesions (postprocedural) (postinfection); D63.8 Anemia in other chronic diseases classified elsewhere; I10 Essential (primary) hypertension; Q05.9 Spina bifida, unspecified; Z88.1 Allergy status to other antibiotic agents; Z79.01 Long term (current) use of anticoagulants; Z79.899 Other long term (current) drug therapy
CPT/HCPCS: 10783; 27000; 50010; 50101; 50249; 50386; 50403; 50455; 50555; 50558; 50739; 50740; 50962; 51412; 51435; 51708; 51712; 52265; 53307; 54022; 54118; 56462; 56524; 56526; 57092; 57119; 57120; 57138; 57143; 57192; 62110; 62900; 70005

== ENCOUNTER → 2019-04-11 | Outpatient (CLI) | payer OTHER, BC ==
[~2019-04-11] MED LIST changes: +HYDROCODON-ACE1 EAC7 PO
== END ==
LOC: HYPER 06:59
DX: L89.223 Pressure ulcer of left hip, stage 3 (principal); L89.893 Pressure ulcer of other site, stage 3; Q05.2 Lumbar spina bifida with hydrocephalus; E66.01 Morbid (severe) obesity due to excess calories; R60.0 Localized edema; I10 Essential (primary) hypertension; I87.2 Venous insufficiency (chronic) (peripheral); Z68.42 Body mass index [BMI] 45.0-49.9, adult

== ENCOUNTER → 2019-04-25 | Outpatient (CLI) | payer OTHER, BC | LOC: HYPER 14:42 | DX: L89.223 Pressure ulcer of left hip, stage 3 (principal); E11.622 Type 2 diabetes mellitus with other skin ulcer; L98.491 Non-pressure chronic ulcer of skin of other sites limited to breakdown of skin; I10 Essential (primary) hypertension; I87.2 Venous insufficiency (chronic) (peripheral); Q05.2 Lumbar spina bifida with hydrocephalus; E66.01 Morbid (severe) obesity due to excess calories; R60.0 Localized edema; Z68.42 Body mass index [BMI] 45.0-49.9, adult ==

== ENCOUNTER → 2019-05-16 | Outpatient (CLI) | payer OTHER, BC | LOC: HYPER 11:50 | DX: L89.893 Pressure ulcer of other site, stage 3 (principal); L89.223 Pressure ulcer of left hip, stage 3; S71.112A Laceration without foreign body, left thigh, initial encounter; E66.01 Morbid (severe) obesity due to excess calories; Q05.2 Lumbar spina bifida with hydrocephalus; I10 Essential (primary) hypertension; I87.2 Venous insufficiency (chronic) (peripheral); R60.0 Localized edema; Z68.42 Body mass index [BMI] 45.0-49.9, adult; X58.XXXA Exposure to other specified factors, initial encounter; Y93.89 Activity, other specified; Y92.89 Other specified places as the place of occurrence of the external cause; Y99.8 Other external cause status ==

== ENCOUNTER → 2019-06-13 | Outpatient (CLI) | payer OTHER, BC | LOC: HYPER 12:01 | DX: L89.893 Pressure ulcer of other site, stage 3 (principal); L89.223 Pressure ulcer of left hip, stage 3; S71.112A Laceration without foreign body, left thigh, initial encounter; Q05.2 Lumbar spina bifida with hydrocephalus; I87.2 Venous insufficiency (chronic) (peripheral); E66.01 Morbid (severe) obesity due to excess calories; R60.0 Localized edema; X58.XXXA Exposure to other specified factors, initial encounter; Y93.89 Activity, other specified; Y92.89 Other specified places as the place of occurrence of the external cause; Y99.8 Other external cause status ==

== ENCOUNTER → 2019-06-20 | Outpatient (CLI) | payer OTHER, BC | LOC: HYPER 13:52 | DX: L89.223 Pressure ulcer of left hip, stage 3 (principal); L89.893 Pressure ulcer of other site, stage 3; S71.112D Laceration without foreign body, left thigh, subsequent encounter; I87.2 Venous insufficiency (chronic) (peripheral); G83.9 Paralytic syndrome, unspecified; Q05.2 Lumbar spina bifida with hydrocephalus; R60.0 Localized edema; E66.01 Morbid (severe) obesity due to excess calories; Z68.42 Body mass index [BMI] 45.0-49.9, adult; Z79.01 Long term (current) use of anticoagulants; Z93.3 Colostomy status; X58.XXXD Exposure to other specified factors, subsequent encounter ==

== ENCOUNTER → 2019-06-27 | Outpatient (CLI) | payer OTHER, BC | LOC: HYPER 13:48 | DX: L89.893 Pressure ulcer of other site, stage 3 (principal); L89.223 Pressure ulcer of left hip, stage 3; S71.112D Laceration without foreign body, left thigh, subsequent encounter; Q05.2 Lumbar spina bifida with hydrocephalus; I87.2 Venous insufficiency (chronic) (peripheral); R60.0 Localized edema; E66.01 Morbid (severe) obesity due to excess calories; Z68.42 Body mass index [BMI] 45.0-49.9, adult; Z79.01 Long term (current) use of anticoagulants; X58.XXXD Exposure to other specified factors, subsequent encounter ==

== ENCOUNTER → 2019-07-04 | Outpatient (CLI) | payer OTHER, BC | LOC: HYPER 11:45 | DX: L89.893 Pressure ulcer of other site, stage 3 (principal); L89.223 Pressure ulcer of left hip, stage 3; S71.112D Laceration without foreign body, left thigh, subsequent encounter; I87.2 Venous insufficiency (chronic) (peripheral); Q05.2 Lumbar spina bifida with hydrocephalus; R60.0 Localized edema; R21 Rash and other nonspecific skin eruption; I10 Essential (primary) hypertension; Q05.9 Spina bifida, unspecified; E66.01 Morbid (severe) obesity due to excess calories; Z79.01 Long term (current) use of anticoagulants; Z68.42 Body mass index [BMI] 45.0-49.9, adult; X58.XXXD Exposure to other specified factors, subsequent encounter ==

== ENCOUNTER → 2019-07-11 | Outpatient (CLI) | payer OTHER, BC | LOC: HYPER 13:46 | DX: L89.223 Pressure ulcer of left hip, stage 3 (principal); L89.893 Pressure ulcer of other site, stage 3; S71.112D Laceration without foreign body, left thigh, subsequent encounter; I87.2 Venous insufficiency (chronic) (peripheral); Q05.2 Lumbar spina bifida with hydrocephalus; G83.9 Paralytic syndrome, unspecified; I10 Essential (primary) hypertension; E66.01 Morbid (severe) obesity due to excess calories; Z68.42 Body mass index [BMI] 45.0-49.9, adult; Z79.01 Long term (current) use of anticoagulants; X58.XXXD Exposure to other specified factors, subsequent encounter ==

== ENCOUNTER → 2019-07-18 | Outpatient (CLI) | payer OTHER, BC | LOC: HYPER 10:16 | DX: L89.893 Pressure ulcer of other site, stage 3 (principal); L89.223 Pressure ulcer of left hip, stage 3; S71.112D Laceration without foreign body, left thigh, subsequent encounter; E66.01 Morbid (severe) obesity due to excess calories; G82.20 Paraplegia, unspecified; Q05.2 Lumbar spina bifida with hydrocephalus; I10 Essential (primary) hypertension; I87.2 Venous insufficiency (chronic) (peripheral); R60.0 Localized edema; Z68.42 Body mass index [BMI] 45.0-49.9, adult; X58.XXXD Exposure to other specified factors, subsequent encounter ==

== ENCOUNTER → 2019-07-25 | Outpatient (CLI) | payer OTHER, BC | LOC: HYPER 13:12 | DX: T86.828 Other complications of skin graft (allograft) (autograft) (principal); L89.223 Pressure ulcer of left hip, stage 3; L89.893 Pressure ulcer of other site, stage 3; S71.112D Laceration without foreign body, left thigh, subsequent encounter; I87.2 Venous insufficiency (chronic) (peripheral); Q05.2 Lumbar spina bifida with hydrocephalus; R21 Rash and other nonspecific skin eruption; I10 Essential (primary) hypertension; E66.01 Morbid (severe) obesity due to excess calories; Z68.42 Body mass index [BMI] 45.0-49.9, adult; Z79.01 Long term (current) use of anticoagulants; Z93.3 Colostomy status; Y83.2 Surgical operation with anastomosis, bypass or graft as the cause of abnormal reaction of the patient, or of later complication, without mention of misadventure at the time of the procedure; X58.XXXD Exposure to other specified factors, subsequent encounter ==

== ENCOUNTER → 2019-08-01 | Outpatient (CLI) | payer OTHER, BC | LOC: HYPER 07-31 16:03 | DX: L89.223 Pressure ulcer of left hip, stage 3 (principal); L89.893 Pressure ulcer of other site, stage 3; Q05.2 Lumbar spina bifida with hydrocephalus; E66.01 Morbid (severe) obesity due to excess calories; R60.0 Localized edema; I87.2 Venous insufficiency (chronic) (peripheral); I10 Essential (primary) hypertension; Z68.42 Body mass index [BMI] 45.0-49.9, adult ==

== ENCOUNTER → 2019-08-15 | Outpatient (CLI) | payer OTHER, BC | LOC: HYPER 09:56 | DX: L89.893 Pressure ulcer of other site, stage 3 (principal); L89.223 Pressure ulcer of left hip, stage 3; Q05.2 Lumbar spina bifida with hydrocephalus; E66.01 Morbid (severe) obesity due to excess calories; R60.0 Localized edema; I10 Essential (primary) hypertension; I87.2 Venous insufficiency (chronic) (peripheral); Z68.42 Body mass index [BMI] 45.0-49.9, adult ==

== ENCOUNTER → 2019-08-29 | Outpatient (CLI) | payer OTHER, BC | LOC: HYPER 10:10 | DX: L89.223 Pressure ulcer of left hip, stage 3 (principal); L89.893 Pressure ulcer of other site, stage 3; S91.202D Unspecified open wound of left great toe with damage to nail, subsequent encounter; S91.201A Unspecified open wound of right great toe with damage to nail, initial encounter; E66.01 Morbid (severe) obesity due to excess calories; Q05.2 Lumbar spina bifida with hydrocephalus; R60.0 Localized edema; I10 Essential (primary) hypertension; I87.2 Venous insufficiency (chronic) (peripheral); Z68.42 Body mass index [BMI] 45.0-49.9, adult; X58.XXXD Exposure to other specified factors, subsequent encounter; W22.8XXA Striking against or struck by other objects, initial encounter; Y93.89 Activity, other specified; Y92.89 Other specified places as the place of occurrence of the external cause; Y99.8 Other external cause status ==

== ENCOUNTER → 2019-09-26 | Outpatient (CLI) | payer OTHER, BC | LOC: HYPER 08:40 | DX: L89.893 Pressure ulcer of other site, stage 3 (principal); E66.01 Morbid (severe) obesity due to excess calories; Q05.2 Lumbar spina bifida with hydrocephalus; I10 Essential (primary) hypertension; I87.2 Venous insufficiency (chronic) (peripheral); Z68.42 Body mass index [BMI] 45.0-49.9, adult ==

== ENCOUNTER → 2019-10-10 | Outpatient (CLI) | payer OTHER, BC | LOC: HYPER 07:26 | PROVIDERS: ATTEND Emergency Medicine | DX: L89.893 Pressure ulcer of other site, stage 3 (principal); L84 Corns and callosities; E66.01 Morbid (severe) obesity due to excess calories; I10 Essential (primary) hypertension; I87.2 Venous insufficiency (chronic) (peripheral); Q05.2 Lumbar spina bifida with hydrocephalus; Z68.42 Body mass index [BMI] 45.0-49.9, adult ==

== ENCOUNTER → 2019-10-24 | Outpatient (CLI) | payer OTHER, BC | LOC: HYPER 09:05 | PROVIDERS: ATTEND Emergency Medicine | DX: L89.893 Pressure ulcer of other site, stage 3 (principal); L84 Corns and callosities; E66.01 Morbid (severe) obesity due to excess calories; Q05.2 Lumbar spina bifida with hydrocephalus; I10 Essential (primary) hypertension; I87.2 Venous insufficiency (chronic) (peripheral); Z68.42 Body mass index [BMI] 45.0-49.9, adult ==

== ENCOUNTER → 2019-11-07 | Outpatient (CLI) | payer OTHER, BC | LOC: HYPER 06:54 | PROVIDERS: ATTEND Emergency Medicine | DX: L89.323 Pressure ulcer of left buttock, stage 3 (principal); L89.893 Pressure ulcer of other site, stage 3; I10 Essential (primary) hypertension; Q05.2 Lumbar spina bifida with hydrocephalus; I87.2 Venous insufficiency (chronic) (peripheral); E66.01 Morbid (severe) obesity due to excess calories; Z68.42 Body mass index [BMI] 45.0-49.9, adult; L84 Corns and callosities ==

== ENCOUNTER → 2019-11-21 | Outpatient (CLI) | payer OTHER, BC | LOC: HYPER 08:49 | PROVIDERS: ATTEND Emergency Medicine | DX: L89.893 Pressure ulcer of other site, stage 3 (principal); E66.01 Morbid (severe) obesity due to excess calories; Q05.2 Lumbar spina bifida with hydrocephalus; I10 Essential (primary) hypertension; I87.2 Venous insufficiency (chronic) (peripheral); Z68.42 Body mass index [BMI] 45.0-49.9, adult ==

== ENCOUNTER → 2019-12-05 | Outpatient (CLI) | payer OTHER, BC | LOC: HYPER 09:14 | PROVIDERS: ATTEND Emergency Medicine | DX: L89.893 Pressure ulcer of other site, stage 3 (principal); L84 Corns and callosities; E66.01 Morbid (severe) obesity due to excess calories; I10 Essential (primary) hypertension; I87.2 Venous insufficiency (chronic) (peripheral); Q05.2 Lumbar spina bifida with hydrocephalus; Z68.42 Body mass index [BMI] 45.0-49.9, adult ==

== ENCOUNTER → 2019-12-19 | Outpatient (CLI) | payer OTHER, BC | LOC: HYPER 09:07 | PROVIDERS: ATTEND Emergency Medicine | DX: L89.893 Pressure ulcer of other site, stage 3 (principal); I87.2 Venous insufficiency (chronic) (peripheral); Q05.2 Lumbar spina bifida with hydrocephalus; L84 Corns and callosities; I10 Essential (primary) hypertension; Q05.9 Spina bifida, unspecified; E66.01 Morbid (severe) obesity due to excess calories; Z68.42 Body mass index [BMI] 45.0-49.9, adult; Z79.01 Long term (current) use of anticoagulants ==

== ENCOUNTER → 2019-12-31 | Outpatient (CLI) | payer OTHER, BC | LOC: HYPER 09:03 | PROVIDERS: ATTEND Specialist | DX: L89.893 Pressure ulcer of other site, stage 3 (principal); L84 Corns and callosities; Q05.2 Lumbar spina bifida with hydrocephalus; B36.9 Superficial mycosis, unspecified; E66.01 Morbid (severe) obesity due to excess calories; I10 Essential (primary) hypertension; I87.2 Venous insufficiency (chronic) (peripheral); Z68.42 Body mass index [BMI] 45.0-49.9, adult ==

== ENCOUNTER → 2020-01-16 | Outpatient (CLI) | payer OTHER, BC | LOC: HYPER 08:51 | PROVIDERS: ATTEND Emergency Medicine | DX: L89.893 Pressure ulcer of other site, stage 3 (principal); L84 Corns and callosities; Q05.2 Lumbar spina bifida with hydrocephalus; E66.01 Morbid (severe) obesity due to excess calories; B36.9 Superficial mycosis, unspecified; I10 Essential (primary) hypertension; I87.2 Venous insufficiency (chronic) (peripheral); Z68.42 Body mass index [BMI] 45.0-49.9, adult ==

== ENCOUNTER → 2020-01-30 | Outpatient (CLI) | payer OTHER, BC | LOC: HYPER 08:53 | PROVIDERS: ATTEND Emergency Medicine | DX: L89.893 Pressure ulcer of other site, stage 3 (principal); Q05.2 Lumbar spina bifida with hydrocephalus; L84 Corns and callosities; B36.9 Superficial mycosis, unspecified; E66.01 Morbid (severe) obesity due to excess calories; I87.2 Venous insufficiency (chronic) (peripheral); I10 Essential (primary) hypertension; Z68.42 Body mass index [BMI] 45.0-49.9, adult ==

== ENCOUNTER 2020-02-04 15:32 | Inpatient (IN) | payer OTHER, BC ==
[~2020-02-04] VITALS: Ht 162.6 cm; Wt 117.0 kg
[2020-02-04 15:33] VITALS: BP 120/78
[2020-02-04] MEDS ORDERED: NEURONTIN 300M300 M2 PO (15:38)
[2020-02-04 17:04] LABS: ABSOLUTE NEUTROPHILS 7.4 thou/uL (1.4-8.2); BASOPHILS 0.9 % (0.0-2.0); EOSINOPHILS 4.1 % (0.0-3.0); HEMATOCRIT 30.4 % (42.0-52.0); HEMOGLOBIN 9.3 gm/dL (14.0-18.0); MCH 18.2 pg (26.0-34.0); MCHC 30.4 g/dL (28.0-37.0); MCV 59.7 fL (80.0-100.0); MONOCYTES 7.8 % (1.0-8.0); PLATELET COUNT 608 thou/uL (150-400); POLYS 67.2 % (36.0-66.0); RDW 21.5 % (10.5-14.5)
[2020-02-04 17:14] LABS: ANION GAP 9 mmol/L (7-16); BUN 16 mg/dL (7-18); CALCIUM 8.5 mg/dL (8.5-10.1); CHLORIDE 102 mmol/L (98-107); CO2 25 mmol/L (21-32); GLUCOSE 107 mg/dL (74-106); SODIUM 136 mmol/L (136-145)
[2020-02-04 17:19] LABS: ALBUMIN 2.3 g/dL (3.4-5.0); DIRECT BILIRUBIN < 0.1 mg/dL (<0.1-0.2); LIPASE 115 U/L (73-393); SGOT 11 U/L (15-37); SGPT 7 U/L (30-65); TOTAL BILIRUBIN 0.3 mg/dL (0.2-1.0); TOTAL PROTEIN 8.8 g/dL (6.4-8.2)
[2020-02-04 17:46] LABS: ANISOCYTOSIS 2+
[2020-02-04 17:47] LABS: HYPOCHROMASIA 1+; LARGE PLATELETS OCCASIONAL; MICROCYTES 2+; POLYCHROMASIA OCCASIONAL
[2020-02-04 20:40] LABS: URINE BILIRUBIN NEGATIVE (Negative); URINE BLOOD 2+ (Negative); URINE CLARITY CLOUDY; URINE COLOR YELLOW; URINE GLUCOSE-RANDOM* NEGATIVE (Negative); URINE KETONES NEGATIVE (Negative); URINE LEUKOCYTES-REFLEX 2+ (Negative); URINE NITRITE-REFLEX NEGATIVE (Negative); URINE PROTEIN (DIPSTICK) 2+ (Negative); URINE SPECIFIC GRAVITY 1.015 (1.005-1.035); URINE UROBILINOGEN 0.2 E.U./dl (0.2-1.0)
[2020-02-04 20:51] LABS: BACTERIA-REFLEX >30 Many /HPF (None Seen); CASTS None Seen /LPF (None Seen); SQUAMOUS 0-3 Few /LPF (0-3); URINE RBC 3-10 Few /HPF (0-2); URINE WBC-REFLEX >25 Many /HPF (0-5)
[2020-02-04 20:52] LABS: CRYSTALS None Seen /LPF (None Seen); WBC CLUMPS Few (None Seen)
[2020-02-04 21:31] VITALS: BP 120/78
[2020-02-04 21:44] VITALS: BP 108/76
[2020-02-04 21:58] VITALS: BP 127/79
--- NOTE | 2020-02-05 01:53 | NUR ---
Pt admitted from ED at 2200. A/OX4,VSS. Pt transferred with assist of 2,pt is normally WC bound but transfers self stand/pivots from bed to WC at home. Admitted d/t UA cultures results per woundcare Dr,has UTI. Pt straight caths self 3/day,has a colostomy on RLQ which he takes care of himself at home. Woundcare/pictures done to left posterior thigh,slight odor noted from area. Pt has a PIV on LFA with IVF infusing w/o problems at this time. Repositions self as needed;will order HORTENCIA for pt. Fall precautions in place,will continue to monitor pt.
[2020-02-05 03:52] VITALS: BP 94/60
[2020-02-05 06:31] LABS: CALCIUM 8.1 mg/dL (8.5-10.1); POTASSIUM 3.7 mmol/L (3.5-5.1)
[2020-02-05 07:40] VITALS: BP 113/80
[2020-02-05 10:45] VITALS: BP 113/80
--- NOTE | 2020-02-05 10:47 | NUR ---
Case opened to follow for dc planning. Pt known to cm from previous admissions. He is a&ox4 and indicates that he is still living indep in a property of his fathers. It is handicap assessible and he has all needed dme in place including an elect w/c, ramp, hosp bed, trapeze, shower chair and grab bars. His father provides transport to any appt with their w/c van. He can take him home at [place]. He was admitted with UTI and is on iv atb. He sees Dr. Torres in the wound clinic every 2 wks for a chronic thigh wound. He is non ambulatory d/t spina bifida and has an ostomy and self caths. He is functionally indep and has support family and friends that help with housekeeping and errands. He orders his grocery and things he needs online. He has [facility] RN MWF for wound care and a bath aide 2xwkly. He would like to resume with that agency at [place]. He has been to [facility] and [facility] in the past but does not anticipate needing any referrals other than hh at [place]. He Support provided. PCp is Dr. Geno Bates. Will update [facility] and plan to resume services at [place].
--- NOTE | 2020-02-05 14:27 | NUR ---
FAXED CLINICAL UPDATE TO [facility] SPOKE WITH KIM IN INTAKE SHE WILL RESUME HH AT DISCHARGE.
--- NOTE | 2020-02-05 14:38 | NUR ---
Assess due to RD consult, pt with hx chronic thigh wound, and is followed in wound care clinic. Hx paraplegia, spina bifida. Eats high protein diet, uses Premier drinks. Wts stable, class III obesity, BMI 44.3. Will order Ensure Max bid. Low nutrition risk with appropriate nutrition interventions in place
[2020-02-05 15:48] VITALS: BP 130/76
--- NOTE | 2020-02-05 18:15 | NUR ---
ASSUMED PT CARE THIS AM. PT A&OX4, VITAL SIGNS STABLE. PT IS PLEASANT, AND COOPERATIVE WITH STAFF. PT REPOSITIONS INDEPENDENTLY, AND CALLS WHEN NEEDED. MEDICATIONS TOLERATED WELL. WOUND PICTURES TAKEN AND WOUND CARE DONE. PT IV PATENT. PT SELF-CATHS THREE TIMES DAILY, EMPTIES OSTOMY BAG WITH ASSISTANCE. WILL CONTINUE TO MONITOR.
[2020-02-05 20:00] VITALS: BP 128/67
[2020-02-06 08:20] VITALS: BP 181/70
[2020-02-06 20:51] VITALS: BP 95/51
[2020-02-07 06:21] LABS: HEMATOCRIT 28.9 % (42.0-52.0); HEMOGLOBIN 8.7 gm/dL (14.0-18.0); MCHC 30.1 g/dL (28.0-37.0); MCV 59.8 fL (80.0-100.0); PLATELET COUNT 593 thou/uL (150-400); RBC 4.84 mil/uL (4.50-6.00); RDW 21.6 % (10.5-14.5); WBC 7.2 thou/uL (4.0-11.0)
[2020-02-07 06:34] LABS: CALCIUM 8.2 mg/dL (8.5-10.1); CREATININE 0.8 mg/dL (0.7-1.3); PHOSPHORUS 4.4 mg/dL (2.5-4.9); POTASSIUM 3.8 mmol/L (3.5-5.1); TOTAL BILIRUBIN 0.3 mg/dL (0.2-1.0); TOTAL PROTEIN 7.9 g/dL (6.4-8.2)
--- NOTE | 2020-02-07 08:20 | NUR ---
progress pt a/o x4 repositions self in bed wound care completed iv antibiotics administered as ordered pt tolerating diet self cathing with good return does self ostomy care reminded him to let us collect sample today.
--- NOTE | 2020-02-07 10:00 | NUR ---
PT IN BED, PT STATED HE HASN'T GOTTEN OUT OF BED SINCE HE HAS BEEN HERE. PT HAS COLOSTOMY THAT IS FULL OF SOFT BROWN BM. PT ALSO HAS STRAIGHT CATH SUPPLIES AT BEDSIDE. PT DENIES ANY PAIN. PT FEEDS SELF. PT HAS SCD'S ON BILATERAL.
[2020-02-07 10:56] LABS: ABSOLUTE NEUTROPHILS 3.4 thou/uL (1.4-8.2); PLATELET ESTIMATE NORMAL
[2020-02-07 10:57] LABS: ANISOCYTOSIS 1+; HYPOCHROMASIA 1+; MICROCYTES 2+
--- NOTE | 2020-02-07 11:10 | NUR ---
Nutrition: Received second RD consult for 'malnutrition and wounds.' Pt recently assessed 02/[address] Hx chronic thigh wound - followed in wound care clinic. Hx: paraplegia, spina bifida. On earlier interview this week, it was found pt was already eating a high protein diet at home, plus drinking Premier protein drinks which contains 30 g per serving. Given stable weights and no oral intake concerns at home, will defer diagnosis of malnutrition at this time. BMI 44.3 kg/m2, class III obesity. Ensure MAX has already been added to nutrition regimen BID which supplies 30 g protein/serving as well, but limits kcals to prevent further weight gain. He ate 100% of all 3 meals on 02/04. K+, Phos, and Mag lytes all WNL per daily labs. Remains low risk with interventions in place.
--- NOTE | 2020-02-07 11:25 | NUR ---
OBTAINING OCCULT BLOOD FROM COLOSTOMY. THE WOUND COLOSTOMY NURSE IS HERE TO CHECK ON THE OSTOMY. SHE WAS GOING TO LEAVE SUPPLIES FOR CHANGE, BUT SINCE THE BAG WAS FULL SHE CHANGED THE WHOLE COLOSTOMY BAG. THERE WAS WOUNDS TO THE LEFT OF THE BAG SHE HAD TO USE A LARGE COLOSTOMY RING TO COVER.
--- NOTE | 2020-02-07 12:04 | NUR ---
OSTOMY CARE; ALERT, COOPERATIVE, PLEASANT, STATES HE DID NOT BRING OSTOMY SUPPLIES TO HOSP, POUCH LEAKING, PERISTOMAL ULCER PRESENT ~1.5CM LEFT SIDE NEAR STOMA, AQUACEL AG APPLIED W/ APAPT RINGS, PERISTOMAL HERNIA PRESENT, PT STATES HERNIA HAS BEEN THERE A LONG TIME, STATES STOMA WAS GETTING LARGER DUE TO HERNIA, STOMA RED VIABLE 3.5INCHES, BUDDED, SOME DENUDED SKIN NOTED ENTIRELY AROUND STOMA, INFORMED PT PROBABLE OCCURRED DUE TO CUTTING WAFER TOO LARGE. NEW POUCH MAYRA 4 INCH APPLIED, DISCUSSED SURGERY CONSULT PRN DUE TO HERNIA, DENIES ANY PAIN W/ HERNIA, VERY RECEPTIVE TO EDUCATION, STATES HARD STOOL LAST NIGHT, MUSHY SOFT BROWN STOOL LARGE AMT NOTED TODAY, SUPPLIES LEFT AT BS, WILL CONT TO FOLLOW RECOMMENDATIONS; CHANGE POUCH Q3-4 DAYS AND PRN, USE OF AQUACEL AG TO PERISTOMAL ULCER TILL HEALED, 4 INCH MAYRA CUT TO FIT APPLIANCE FOURCHETTE SEWER AWARE
--- NOTE | 2020-02-07 13:20 | NUR ---
PT WAS RELUNCTANT TO TAKING LACTULOSE DUE TO HIS STOOL NOT BEING HARD HE THOUGHT, PT STATED HE WOULD LIKE STOOL SOFTNER BETTER THAN LACTULOSE NEEDED.
[2020-02-07 15:45] VITALS: BP 118/68
--- NOTE | 2020-02-07 16:25 | NUR ---
PT CONTINUES ON IV ZOSYN. CARE TEAM INDICATED THAT THEY ANTICPATED PT REMAINING HERE OVER THE WEEKEND. IT IS ANTICIPATED THAT THAT PT WILL BE ABLE TO RETURN HOME WITH [facility] ONCE MEDICALLY STABLE. CM TO FOLLOW INDICATED WITH DC PLANNING. [facility] P: F:
[2020-02-07 18:34] LABS: % SATURATION 9 % (20-39); IRON 19 ug/dL (65-175); TIBC 207 ug/dL (250-450)
[2020-02-07 19:16] LABS: FOLIC ACID 7.1 ng/mL (8.6-58.9)
[2020-02-07 19:48] VITALS: BP 97/67
[2020-02-08 05:41] LABS: BASOPHILS 0.5 % (0.0-2.0); EOSINOPHILS 13.8 % (0.0-3.0); HEMATOCRIT 31.1 % (42.0-52.0); HEMOGLOBIN 9.4 gm/dL (14.0-18.0); LYMPHOCYTES 19.7 % (24.0-44.0); MCH 18.1 pg (26.0-34.0); MCHC 30.1 g/dL (28.0-37.0); MONOCYTES 8.1 % (1.0-8.0); PLATELET COUNT 655 thou/uL (150-400); POLYS 57.9 % (36.0-66.0); RBC 5.19 mil/uL (4.50-6.00); RDW 21.9 % (10.5-14.5); WBC 8.6 thou/uL (4.0-11.0)
[2020-02-08 05:47] LABS: CREATININE 0.8 mg/dL (0.7-1.3); PHOSPHORUS 4.4 mg/dL (2.5-4.9); POTASSIUM 3.6 mmol/L (3.5-5.1)
[2020-02-08 07:23] VITALS: BP 81/43
--- NOTE | 2020-02-08 08:36 | NUR ---
PROGRESS PT PARAPLEGIC BUT ABLE TO TURN AND PULL SELF UP IN BED, LUNGS CLEAR VSS, WOUND CARE TO LEFT BUTTOCK AND THIGH COMPLETED ORDERED SMALL AMOUNT OF SANGUINOUS DRAINAGE NOTED BED BATH GIVEN SKIN MOISTURIZED PT REPOSITIONED SELF AND OFFLOADED HEELS .
[2020-02-08 12:19] LABS: ANISOCYTOSIS 2+; HYPOCHROMASIA 2+; MICROCYTES 3+
[2020-02-08 15:50] VITALS: BP 100/63
[2020-02-08 19:03] VITALS: BP 98/64
--- NOTE | 2020-02-08 19:48 | NUR ---
Assumed pt care this am, pt is able to turn self on the bed. Has a colosotmy that was drained, ostomy care done and new bag placed. Pt is able to straigh cat himself informed staff of out put. Heel are off loaded. POc followed with no signs or verbalizations of distress noted. Diet amd medications are tolerated well. Wounbd care not done endorsed to the night nurse.
--- NOTE | 2020-02-09 05:56 | NUR ---
VSS-AFEBRILE. LUNGS CLEAR-ROOM AIR. SELF CATH WITHOUT DIFFICULTY. COLOSTOMY DRAINING MODERATE AMOUNTS OF SOFT, YELLOW/BROWN STOOL, STOMA IS PINK. TURNS SELF IN BED. NO REPORTED PAIN. CALLS APPROPRIATELY FOR ANY NEEDED ASSISTANCE.
[2020-02-09 06:30] LABS: ABSOLUTE NEUTROPHILS 5.4 thou/uL (1.4-8.2); BASOPHILS 0.5 % (0.0-2.0); EOSINOPHILS 14.2 % (0.0-3.0); HEMATOCRIT 27.8 % (42.0-52.0); HEMOGLOBIN 8.3 gm/dL (14.0-18.0); LYMPHOCYTES 20.2 % (24.0-44.0); MCV 60.1 fL (80.0-100.0); MONOCYTES 7.4 % (1.0-8.0); POLYS 57.7 % (36.0-66.0); RBC 4.63 mil/uL (4.50-6.00); RDW 22.1 % (10.5-14.5); WBC 9.3 thou/uL (4.0-11.0)
[2020-02-09 06:57] LABS: ALBUMIN 1.9 g/dL (3.4-5.0); ANION GAP 10 mmol/L (7-16); BUN 19 mg/dL (7-18); CHLORIDE 107 mmol/L (98-107); CO2 22 mmol/L (21-32); CREATININE 0.8 mg/dL (0.7-1.3); DIRECT BILIRUBIN < 0.1 mg/dL (<0.1-0.2); GLUCOSE 94 mg/dL (74-106); MAGNESIUM 2.2 mg/dL (1.8-2.4); POTASSIUM 3.9 mmol/L (3.5-5.1); SGOT 13 U/L (15-37); SGPT 6 U/L (30-65); SODIUM 139 mmol/L (136-145); TOTAL BILIRUBIN 0.3 mg/dL (0.2-1.0); TOTAL PROTEIN 7.4 g/dL (6.4-8.2)
[2020-02-09 07:13] LABS: PLATELET COUNT 554 thou/uL (150-400)
[2020-02-09 08:16] VITALS: BP 118/79
[2020-02-09 08:21] LABS: ANISOCYTOSIS 3+; HYPOCHROMASIA 3+; MICROCYTES 3+
--- NOTE | 2020-02-09 10:06 | HC ---
[facility] [place] [address] [place] [address] CONSULTATION Name: ROBERT CASTELLON Room #: 464-P [facility] IN M.R.#: [id number] Admission: 02/04/20 Attend Phys: Hank Odell MD Discharge: Date of : 74 Report #: [id number] THIS REPORT FOR: cc: Geno Bates MD, Nora P. MD McElhinney, Christian C. MD ~ CC: Hank Bates DATE OF SERVICE: 02/08/2020 HISTORY OF PRESENT ILLNESS: The patient is a 49-year-old male with a history of spina bifida, paraplegia. REASON FOR GI CONSULTATION: Anemia and constipation. The patient underwent a diverting colostomy last year by Dr. Macdonald for fecal contamination of pressure ulcers. He has never had an endoscopy. He denies any obvious blood in his stools. He denies any nausea or vomiting. No dysphagia. No significant history of heartburn. He was noted to have a hemoglobin of 9.3 on admission, is 9.4 at this time. He has been anemic for many years dating back to 2016. Stool hemoccult testing x 1 is negative yesterday. The patient at home had been taking MiraLax rarely p.r.n. He states when he has done that on a regular basis, it tends to cause diarrhea in the ostomy bag. He noticed his stools have been somewhat more firm recently, he was given 1 dose of lactulose yesterday. MiraLax is currently written on a p.r.n. basis and he was started on a stool softener. Stool in the bag at this time is soft, brown. He is denying any abdominal pain. He is tolerating a regular diet well. He was admitted for urinary tract infection. Currently denies any fevers or chills. No chest pain or shortness of breath. He has a history of urinary retention and undergoes self-catheterizations. PAST MEDICAL HISTORY: Spina bifida, previous history of back surgery, paraplegia, diverting colostomy 2018, history of urinary retention, chronic anemia, hypertension, chronic nonhealing wound, renal stones and urinary tract infections. ALLERGIES: VANCOMYCIN. REVIEW OF SYSTEMS: As per HPI. FAMILY HISTORY: Negative for colon cancer. SOCIAL HISTORY: Denies any tobacco or alcohol use. [facility] [address] [place] [address] CONSULTATION Name: ROBERT CASTELLON Room #: 464-P [facility] IN [facility]#: [id number] Admission: 02/04/20 Attend Phys: Hank Odell MD Discharge: Date of : 74 Report #: [id number] PHYSICAL EXAMINATION: VITAL SIGNS: Temperature is 98.1, pulse 69, blood pressure is 81/43, respiratory rate is 14. GENERAL: He is alert and oriented x 3, in no acute distress. HEENT: Sclerae nonicteric. Oropharynx clear. NECK: Supple, without lymphadenopathy. CARDIOVASCULAR: Regular rate and rhythm. CHEST: Clear to auscultation bilaterally anteriorly. ABDOMEN: Obese, soft. Previous incisions are well healed. He has a colostomy in the right lower quadrant. There is brown semi soft stools noted in the colostomy bag at this time. EXTREMITIES: Pitting edema bilaterally, paraplegia, left thigh wound not visualized. LABORATORY DATA: Sodium 137, potassium 3.6, chloride 104, bicarbonate 23, BUN 20, creatinine 0.8, glucose 95. AST 18, lipase 115. Total bilirubin 0.3, calcium 8.0, alkaline phosphatase 58, ALT 7, total protein 7.9, albumin 2.0, iron is 19, TIBC is 207, percent sat is 9. WBC 8.6, hemoglobin 9.4, MCV is 60, platelet count is 655. ASSESSMENT AND PLAN: 1. Anemia. He is microcytic iron deficient. No history of gastrointestinal bleed. Stool was Hemoccult negative x 1. We will repeat stool study. Consider oral iron replacement, may need to consider endoscopy, colonoscopy as the patient has never had one in the past. This may be anemia of chronic disease. 2. Constipation. The patient would prefer to be on a pill stool softener at this time, which has been started. Stools appear soft. No evidence of diarrhea or hard stools in his ostomy bag. Currently would continue to have a simplified regimen of 1 medication if possible. I explained we can always switch or add MiraLax if needed and can titrate as needed as well. Other options are also available. We will continue to follow. Thank you for allowing me to participate in his care. <ELECTRONICALLY SIGNED> By: Eder Reece MD 02/09/20 1006 [id number] 25 Eder Reece MD /nt
[2020-02-09 16:00] VITALS: BP 112/60
--- NOTE | 2020-02-09 19:28 | NUR ---
Assumed pt care at 7am.Assessment completed.vss.Pt able to repositioned self in bed as needed.Pt tolerated meds and diet.Dr Pop and Adan here,order noted.Drsg change will be done by gracie menjivar.No verbal c/o.Fall bundle in place.Will continue to monitor.
[2020-02-09 20:23] VITALS: BP 83/36
[2020-02-10 09:09] VITALS: BP 104/65
--- NOTE | 2020-02-10 11:26 | NUR ---
OSTOMY CARE NOTE; POUCH INTACT, NO LEAKAGE, PT STATES CHANGED YESTERDAY, LOOSE BROWN STOOL NOTED, SUPPLIES 4 INCH MAYRA POUCH PLACED AT BS, WILL CONT TO FOLLOW PRN PHP LAMP DEVELOPER AWARE
[2020-02-10 15:50] VITALS: BP 116/65
--- NOTE | 2020-02-10 16:24 | NUR ---
PT CONTINUES ON IV ZOSYN. WC TREATING. PT TO HAVE COLONOSCOPY DONE WESNESDAY. CM TO FOLLOW INDICATED WITH DC PLANNING.
--- NOTE | 2020-02-10 16:39 | NUR ---
Received awake on bed. Due medications given as prescribed, able to swallow meds w/o difficulty. On room air. Vital signs stable. A+Ox4, paraplegic- assisted in ADLs. On MS, not on telemetry; no complains and signs of chest pain, crushing sensation and heaviness. On regular diet- tolerating well, no nausea, no vomiting and no abdominal pain. With colostomy in place- draining well; output measured and recorded; seen and examined by ostomy nurse- colostomy bag changed today. With neurogenic bladder, pt self catheterizes- physician informed and aware. With wound at posterior thigh- dressing changed by Dr Cabello today. With SL at L FA- intact and flushing well; on IV antibiotics. Wound nurse asked if they are able to replace pt's mesh sleeve for his thigh- Wound nurse provided tubigrip. No complains of pain made. Falls bundle in place. Pt seen and examined by ESCALATOR ATTENDANT Gastro- plan to do colonoscopy tomorrow; consent to be signed, pt placed on clear liquids today; covid swab done and specimen sent- a/w results; for NPO post midnight. To continue monitoring patient. Pt covid result came back- negative, pt informed.
[2020-02-10 20:25] VITALS: BP 116/80
--- NOTE | 2020-02-11 03:20 | NUR ---
Assumed pt care at 1900. A/OX4,VSS. Denies pain on assessment. Pt completed bowel prep on a timely manner and having liquid light brown stool at this time. Dressing to posterior left htigh in place C/D/I. Pt prefers to reposition in bed as needed and doesn't want pillows placed behind his back. Colostomy in place and intact;self straight caths self 3/day with minimal assist. Pt has been NPO since midnight for colonoscopy today. Resting quietly at this time w/o distress noted,will continue to monitor pt.
[2020-02-11 08:24] VITALS: BP 110/66
--- NOTE | 2020-02-11 11:14 | NUR ---
I have reviewed the student's documentation.
[2020-02-11 12:30] VITALS: BP 110/73
--- NOTE | 2020-02-11 14:41 | NUR ---
PT ON SERVICE WITH [facility] PRIOR TO ADM FAXED REFERRAL FOR RESUMPTION OF CARE AD DC SPOKE WITH KIM IN INTAKS SHE RECEIVED REFERRAL AND THEY WILL RESUME CARE AT DC.
--- NOTE | 2020-02-11 15:22 | NUR ---
PT HAD COLONOSCOPY DONE THIS DAY. PT HAD PARTIAL SNARE OF CECAL MASS R/O MALIGNANCY AWAITING RESULTS. CM VISITED WITH PT THIS AFTERNOON AND HE INDICATED THAT HE WOULD PREFER TO GO TO A SKILLED FACILITY RATHER THAN DOING HOME INFUSION UPON DC. PT ASKED THAT REFERRAL BE SENT TO [facility] FOR REVIEW FOR POSSIBLE ADMISSION. CM NOTIFIED PHYSICIAN. CM TO FOLLOW INDICATED WITH DC PLANNING.
--- NOTE | 2020-02-11 19:55 | NUR ---
Received awake on bed. Paraplegic, assisted in ADLs. Vital signs stable. On room air. On nothing per orem- pt informed and aware. On MS, not on telemetry; no complains of chest pain, crushing sensation and heaviness. With colostomy in place- output measured and recorded accordingly. With neurogenic bladder, able to self catheterize. With wound at L posterior thigh- dressing changed today as ordered; pt's mesh soiled- used kerlix, wound physician informed. With SL at R hand- on IV antibiotic- reinserted by GI nurse. Able to turn self in bed. No complains of pain made during assessment. Brought down to GI lab for colonoscopy, consent to be signed; brought down via cart, tolerated procedure well; back to room safely. Vital signs stable post procedure. With CT scan ordered post colonoscopy, cecal mass found. Dr Ochoa informed that pt back from colonoscopy, to review gastro notes- a/w orders. To continue monitoring patient.
[2020-02-11 20:22] VITALS: BP 103/61
[2020-02-12 07:23] VITALS: BP 109/73
--- NOTE | 2020-02-12 11:39 | NUR ---
OSTOMY CARE; POUCH INTACT, NO STOOL SINCE COLONOSCOPY YESTERDAY, DISCUSSED USE OF STOOL SOFTNERS, ETC. SUPPLIES AT BS, REMINDED AGAIN CUTTING WAFER PROPER SIZE AND USE OF AQUACEL AG TO PERISTOMAL ULCER, VERBAL UNDERSTANDING, WILL CONT TO FOLLOW PRN
--- NOTE | 2020-02-12 12:20 | NUR ---
Assumed pt care at 7am.Pt in bed alert and oriented x4.Assessment completed. vss.Pt tolerated meds and diet.St cath done by pt once this am.Iv team here and midline placed.Consult called to Dr Vera but told that one of his partner will be seen pt later today.Pt will dc to snf if no surgery intervention for cecal ca that was noted during colonoscopy yesterday.Drsg change will be done after lunch today.No verbal c/o at present.Fall bundle in place.Will continue to monitor.
--- NOTE | 2020-02-12 13:49 | NUR ---
VASCULAR ACEES CONSULTED FOR ML. PT'S LABS,MEDS,HX,ORDER VERIFED. DISCUSSED BENEFITS AND RISK WIT PT VERBALIZED UNDERSTANDING. TANMAY BASILIC WAS WIDELY PATENT WITH USG. 4FR POWER MIDLINE TRIMMED TO 16CM INSERTED TO 0CM WITH BRISK BR. MIDLINE RELEASED FOR IMMEDIATE USE PER PROTOCOL TO MARGOTH IRIZARRY
[2020-02-12 15:33] VITALS: BP 107/72
--- NOTE | 2020-02-12 16:27 | NUR ---
CM FOLLOWED UP WITH PT THIS AM WE WERE WAITING ON SURGERY TO SEE PT. CM INDICATED THAT [facility]'T FOLLOW OVER AT [facility] ANYMORE. CM PROVIDED LIST OF FACILITIES THEY FOLLOW AT FOR REVIEW. HE WANTS TO SPEAK WITH WC PRIOR TO PICKING A FACILITY. CM TO FOLLOW UP EARLY AM.
[2020-02-12 20:06] LABS: CA 125 5.5 U/mL (Not Estab.)
[2020-02-12 21:19] VITALS: BP 121/75
--- NOTE | 2020-02-13 03:23 | NUR ---
Assumed pt care at 1900. A/OX4,VSS. Denies pain assessment. no N/V. Dressing change done to left posterior thigh and pictures taken w/o problems voiced. Colostomy intact with loose stool,pt declined taking Colace at HS. Straight cathed self as needed. Midline in place on LUE and patent. Fall precautions in place. Pt's able to reposition self as desires,HORTENCIA mattress in place. Resting w/o distress noted will continue to monitor pt.
[2020-02-13 07:25] VITALS: BP 100/67
[2020-02-13] MEDS ORDERED: PROTONIX 20 MG20 M1 PO (12:53)
[2020-02-13] MEDS ORDERED: MIRALAX17 GM PO (12:53)
[2020-02-13] MEDS ORDERED: NEURONTIN 300M300 M2 PO (12:53)
[2020-02-13] MEDS ORDERED: MEROPENEM1 GM IV (12:55)
--- NOTE | 2020-02-13 12:55 | NUR ---
FAXED REFERRAL TO [facility] SPOKE WITH MYRIAM IN ADM SHE RECEIVED REFERRAL AND WILL REVIEW. FAXED REFERRAL TO [facility] RECEIVED CONFIRMATION AND LEFT MSG WITH VALENTINO IN ADM.
--- NOTE | 2020-02-13 13:57 | NUR ---
Assessment completed.vss.Pt in bed most of the time but able to repositioned self as needed.Pt has good appetite.Dr Ochoa and Irineo here,order noted. Drsg change done by family law attorney and picture taken last noc.Pt will be dc to [facility] later today.manager of compensation to arrange for transport.Pt informed about dc. No verbal c/o.Will continue to monitor.
--- NOTE | 2020-02-13 14:56 | NUR ---
WOUND CONSULT; ROUNDING WITH DR ACOSTA TODAY. THE POSTERIOR THIGH WOUND WAS ASSESSED. THE WOUND WAS BEEFY RED AND CLEANSED WITH SALINE. AQUACEL AG, COVERED WITH AN ABD, SECURED WITH A TUBIGRIP WAS APPLIED. DR ACOSTA APPLED THE DRESSING HIMSELF. DR ACOSTA DISCUSSED THE DRESSING AND DI/C PLAN WITH THE RN AND MANAGER BENCH.
[2020-02-13 16:06] LABS: CEA 2.2 ng/mL (0.0-4.7)
--- NOTE | 2020-02-13 16:06 | PATH ---
[facility] [address] [place] [address] PATHOLOGY RPT PROCEDURE Name: CHRIS ALFORD Room #: 464-P DIS IN M.R.#: [id number] Admission: 02/04/20 Date of : 74 Discharge: 02/13/20 Report #: [id number] Path Case #: [id number] [facility] Accession Number: [id number] . 01 Material submitted: . cecum - CECAL MASS . 01 Clinical history: . URINARY TRACT INFECTION, R/O MALIGNANCY . 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 - Negative for high grade dysplasia or invasive malignancy. (IUV:pit 02/13/2020) QTP 02/13/2020 1544 Local . 02 Comment: Dr. Lashanu Carl has seen a sales representative printing paper slide of this case and concurs with my diagnosis. (IUV:pit 02/13/2020) . 02 Electronically signed: . Amira Phillips MD, Pathologist NPI- [id number] . 01 Gross description: . The specimen is received in formalin, labeled "Chris Alford, cecal mass". Received are multiple segments of pale fernandez soft tissue ranging in size from 0.3 to 0.8 cm in maximum dimensions. The specimen is submitted entirely in cassette A1. (CAA; 02/12/2020) QAC/QAC 02/12/2020 1631 Local . 02 Pathologist provided ICD-10: D12.0 . 02 CPT . 248757 Specimen Comment: A courtesy copy of this report has been sent to [phone] Specimen Comment: [phone], Specimen Comment: Report sent to ,DR BROWNING / DR ALMONTE Performed at: [address], [place], [place] [id number] [place] [address] PATHOLOGY RPT PROCEDURE Name: CHRIS ALFORD Room #: 464-P [facility] IN M.R.#: [id number] Admission: 02/04/20 Date of : 74 Discharge: 02/13/20 Report #: [id number] Path Case #: [id number] MD Jose Angel Felton MD Phone: [phone] Performed at: [address] [id number] MD Amira Phillips MD Phone: [phone]
--- NOTE | 2020-02-13 16:33 | NUR ---
PT WAS ACCEPTED AT [facility] FAXED DC ORDERS/SUMMARY TO FACILITY SPOKE WITH VALENTINO IN ADM SHE RECEIVED ORDERS AND ARRANGED TRANSPORT BY [facility] AND THEY WILL USE PT'S ELECTRIC WC FOR 1500 TODAY. PT WILL CALL HIS FAMILY UNIT NOTIFIED AND CHART COPY PER US.
--- NOTE | 2020-02-21 11:28 | HC ---
[facility] [place] [address] CONSULTATION Name: ROBERT CASTELLON Room #: 464-P [facility]#: [id number] Admission: 02/04/20 Attend Phys: Hank Odell MD Discharge: 02/13/20 Date of : 74 Report #: [id number] THIS REPORT FOR: cc: Geno Bates MD, Nora P. MD Barry, Joseph W. MD ~ CC: Hank Bates DATE OF SERVICE: 02/09/2020 INFECTIOUS DISEASE CONSULTATION ATTENDING PHYSICIAN: Dr. Odell. REASON FOR EVALUATION: Complicated urinary tract infection, polymicrobial including E. coli with extended spectrum beta lactamase production. HISTORY OF PRESENT ILLNESS: Chart reviewed, patient examined. This is a 49-year-old gentleman with spina bifida. This is complicated by paraplegia. He is essentially wheelchair bound. He has history of repeated urinary tract infection, has to self-catheterization due to bladder dysfunction, has a previous history of kidney stones as well. He has a left posterior thigh chronic wound, undergone extensive treatment [facility]. He was evaluated and felt not to be feeling well. He was referred to the Emergency Room. Urinalysis did suggest infection. He was subsequently admitted. He was placed on broad-spectrum therapy with piperacillin, tazobactam. Culture with growth of Escherichia coli is extended spectrum beta lactamase producing as well as Pseudomonas aeruginosa that was generally susceptible. More recent culture in progress of left wound drainage with growth of Proteus mirabilis. Clinically, he has improved over the course of his hospitalization. He denies significant systemic illness at this point. No fevers. He has had intermittent chills previously. Denies any pulmonary or gastrointestinal related complaints. ALLERGIES: VANCOMYCIN CAUSES ITCHING. CURRENT MEDICATIONS: Include gabapentin, docusate sodium, folic acid, pantoprazole, Zosyn, hydrocodone, bisoprolol, ascorbic acid, apixaban, and acetaminophen. PAST MEDICAL HISTORY: As described above, spina bifida with paraplegia, hypertension, bladder dysfunction requiring self-catheterization, anemia of chronic disease, renal lithiasis, history of chronic wound left thigh with multiple skin grafts. [address] [address] CONSULTATION Name: ROBERT CASTELLON Room #: 464-P [facility].#: [id number] Admission: 02/04/20 Attend Phys: Hank Odell MD Discharge: 02/13/20 Date of : 74 Report #: [id number] SOCIAL HISTORY: Nonsmoker, no ethanol, no illicit drug use. FAMILY HISTORY: Noncontributory. REVIEW OF SYSTEMS: Otherwise, unremarkable 10-point review of systems. PHYSICAL EXAMINATION: GENERAL: Pleasant, alert and cooperative. He is not overtly toxic. He appears to be in mild discomfort, reasonably well nourished. VITAL SIGNS: Temperature 97.9, pulse 71, respirations 15, blood pressure 118/79. SKIN: Warm, dry, no rashes. HEENT: Normocephalic. Extraocular muscles intact. NECK: Supple. LUNGS: Generally clear to auscultation bilaterally. HEART: Regular. I do not appreciate murmur. ABDOMEN: Obese, mildly distended. There are no peritoneal signs. GENITOURINARY AND RECTAL: Deferred. LABORATORY DATA: Most recent CBC from today, white count 9.3, H and H 8.3 and 27.8, platelets of 554. It is down from 655. Electrolytes: Sodium 139, potassium 3.9, chloride 107, bicarbonate 22, anion gap of 10, BUN and creatinine 19 and 0.8, glucose of 94. LFTs unremarkable. Albumin of 1.9, total protein 7.4. Urine cultures described above, polymicrobial growth including Pseudomonas that was generally susceptible to the typical agents, ESBL Proteus mirabilis, which was in vitro susceptible to amikacin, cefoxitin, ceftazidime, meropenem, ertapenem and Zosyn. ASSESSMENT AND PLAN: Complicated urinary tract infection, agree with piperacillin, tazobactam. There is no evidence of any adverse drug effects or hypersensitivities at this point. We will repeat the urinalysis perhaps in the next 24-48 hours whether he need a long-term course. There is no evidence of any sort of obstructive uropathy at this point. We will discuss with Dr. Gregory, returns tomorrow. <ELECTRONICALLY SIGNED> By: Bjorn Pop MD 02/21/20 [phone] Bjorn Pop MD /nt
== END 2020-02-13 15:34 | DRG 393 ==
LOC: ER 15:32 → EROBS 19:24 → 4W 19:24
PROVIDERS: Internal Medicine; Nurse Practitioner; Nurse Practitioner Family; ADMIT Internal Medicine; ATTEND Internal Medicine
PROC: 0DBH8ZX Excision of Cecum, Via Natural or Artificial Opening Endoscopic, Diagnostic (ICD-10-PCS; principal; 2020-02-11)
PROC: 05HB33Z Insertion of Infusion Device into Right Basilic Vein, Percutaneous Approach (ICD-10-PCS; 2020-02-12)
DX: D12.0 Benign neoplasm of cecum (principal); L89.43 Pressure ulcer of contiguous site of back, buttock and hip, stage 3; E43 Unspecified severe protein-calorie malnutrition; N39.0 Urinary tract infection, site not specified; G82.20 Paraplegia, unspecified; Z16.24 Resistance to multiple antibiotics; Z68.41 Body mass index [BMI] 40.0-44.9, adult; S71.102A Unspecified open wound, left thigh, initial encounter; I10 Essential (primary) hypertension; K59.00 Constipation, unspecified; R33.9 Retention of urine, unspecified; E66.01 Morbid (severe) obesity due to excess calories; E53.8 Deficiency of other specified B group vitamins; D50.9 Iron deficiency anemia, unspecified; B96.5 Pseudomonas (aeruginosa) (mallei) (pseudomallei) as the cause of diseases classified elsewhere; B96.4 Proteus (mirabilis) (morganii) as the cause of diseases classified elsewhere; K63.9 Disease of intestine, unspecified; R15.9 Full incontinence of feces; D63.8 Anemia in other chronic diseases classified elsewhere; Z20.828 Contact with and (suspected) exposure to other viral communicable diseases; Q05.9 Spina bifida, unspecified; Z87.442 Personal history of urinary calculi; Z88.1 Allergy status to other antibiotic agents; Z93.3 Colostomy status; X58.XXXA Exposure to other specified factors, initial encounter; Y93.89 Activity, other specified; Y92.89 Other specified places as the place of occurrence of the external cause; Y99.8 Other external cause status
CPT/HCPCS: 10040; 27000; 62110; 62900; 70005

== ENCOUNTER → 2020-04-07 | Outpatient (CLI) | payer OTHER, BC ==
[~2020-04-07] MED LIST changes: +MEROPENEM1 GM IV; +MIRALAX17 GM PO; +NEURONTIN 300M300 M2 PO; +PROTONIX 20 MG20 M1 PO
== END ==
LOC: HYPER 10:16
PROVIDERS: ATTEND Emergency Medicine
DX: L89.893 Pressure ulcer of other site, stage 3 (principal); L89.623 Pressure ulcer of left heel, stage 3; L89.153 Pressure ulcer of sacral region, stage 3; L84 Corns and callosities; B36.9 Superficial mycosis, unspecified; E66.01 Morbid (severe) obesity due to excess calories; Q05.2 Lumbar spina bifida with hydrocephalus; I87.2 Venous insufficiency (chronic) (peripheral); I10 Essential (primary) hypertension; Z68.42 Body mass index [BMI] 45.0-49.9, adult

== ENCOUNTER → 2020-04-28 | Outpatient (CLI) | payer OTHER, BC | LOC: HYPER 13:57 | PROVIDERS: ATTEND Emergency Medicine | DX: L89.893 Pressure ulcer of other site, stage 3 (principal); L89.623 Pressure ulcer of left heel, stage 3; L89.153 Pressure ulcer of sacral region, stage 3; L84 Corns and callosities; B36.9 Superficial mycosis, unspecified; E66.01 Morbid (severe) obesity due to excess calories; G82.20 Paraplegia, unspecified; Q05.2 Lumbar spina bifida with hydrocephalus; I87.2 Venous insufficiency (chronic) (peripheral); I10 Essential (primary) hypertension; Z68.42 Body mass index [BMI] 45.0-49.9, adult ==

== ENCOUNTER → 2020-05-12 | Outpatient (CLI) | payer OTHER, BC | LOC: HYPER 09:20 | PROVIDERS: ATTEND Emergency Medicine | DX: L89.893 Pressure ulcer of other site, stage 3 (principal); L89.623 Pressure ulcer of left heel, stage 3; L89.153 Pressure ulcer of sacral region, stage 3; L84 Corns and callosities; B36.9 Superficial mycosis, unspecified; E66.01 Morbid (severe) obesity due to excess calories; G82.20 Paraplegia, unspecified; Q05.2 Lumbar spina bifida with hydrocephalus; I87.2 Venous insufficiency (chronic) (peripheral); I10 Essential (primary) hypertension; Z68.42 Body mass index [BMI] 45.0-49.9, adult ==

== ENCOUNTER → 2020-05-27 | Outpatient (CLI) | payer OTHER, BC | LOC: HYPER 11:17 | PROVIDERS: ATTEND Emergency Medicine | DX: L89.623 Pressure ulcer of left heel, stage 3 (principal); L89.893 Pressure ulcer of other site, stage 3; L89.153 Pressure ulcer of sacral region, stage 3; L84 Corns and callosities; B36.9 Superficial mycosis, unspecified; E66.01 Morbid (severe) obesity due to excess calories; G82.20 Paraplegia, unspecified; Q05.2 Lumbar spina bifida with hydrocephalus; I87.2 Venous insufficiency (chronic) (peripheral); I10 Essential (primary) hypertension; Z68.42 Body mass index [BMI] 45.0-49.9, adult ==

== ENCOUNTER → 2020-06-24 | Outpatient (CLI) | payer OTHER, BC | LOC: HYPER 13:47 | PROVIDERS: ATTEND Emergency Medicine | DX: L89.623 Pressure ulcer of left heel, stage 3 (principal); L89.893 Pressure ulcer of other site, stage 3; L89.153 Pressure ulcer of sacral region, stage 3; L84 Corns and callosities; B36.9 Superficial mycosis, unspecified; E66.01 Morbid (severe) obesity due to excess calories; G82.20 Paraplegia, unspecified; Q05.2 Lumbar spina bifida with hydrocephalus; I87.2 Venous insufficiency (chronic) (peripheral); I10 Essential (primary) hypertension; Z68.42 Body mass index [BMI] 45.0-49.9, adult ==

== ENCOUNTER → 2020-07-08 | Outpatient (CLI) | payer OTHER, BC | LOC: HYPER 09:10 | PROVIDERS: ATTEND Emergency Medicine | DX: L89.623 Pressure ulcer of left heel, stage 3 (principal); L89.153 Pressure ulcer of sacral region, stage 3; L89.893 Pressure ulcer of other site, stage 3; L84 Corns and callosities; B36.9 Superficial mycosis, unspecified; B37.89 Other sites of candidiasis; E66.01 Morbid (severe) obesity due to excess calories; G82.20 Paraplegia, unspecified; Q05.2 Lumbar spina bifida with hydrocephalus; I87.2 Venous insufficiency (chronic) (peripheral); I10 Essential (primary) hypertension; Z68.42 Body mass index [BMI] 45.0-49.9, adult ==

== ENCOUNTER → 2020-07-29 | Outpatient (CLI) | payer OTHER, BC | LOC: HYPER 13:05 | PROVIDERS: ATTEND Emergency Medicine | DX: L89.153 Pressure ulcer of sacral region, stage 3 (principal); L89.893 Pressure ulcer of other site, stage 3; L84 Corns and callosities; B36.9 Superficial mycosis, unspecified; B37.89 Other sites of candidiasis; E66.01 Morbid (severe) obesity due to excess calories; G82.20 Paraplegia, unspecified; Q05.2 Lumbar spina bifida with hydrocephalus; I87.2 Venous insufficiency (chronic) (peripheral); I10 Essential (primary) hypertension; Z68.42 Body mass index [BMI] 45.0-49.9, adult ==

== ENCOUNTER → 2020-08-12 | Outpatient (CLI) | payer OTHER, BC | LOC: HYPER 13:35 | PROVIDERS: ATTEND Emergency Medicine | DX: L89.322 Pressure ulcer of left buttock, stage 2 (principal); L89.893 Pressure ulcer of other site, stage 3; S71.112A Laceration without foreign body, left thigh, initial encounter; L84 Corns and callosities; B36.9 Superficial mycosis, unspecified; B37.89 Other sites of candidiasis; E66.01 Morbid (severe) obesity due to excess calories; G82.20 Paraplegia, unspecified; Q05.2 Lumbar spina bifida with hydrocephalus; I87.2 Venous insufficiency (chronic) (peripheral); I10 Essential (primary) hypertension; Z68.42 Body mass index [BMI] 45.0-49.9, adult; X58.XXXA Exposure to other specified factors, initial encounter; Y93.89 Activity, other specified; Y92.89 Other specified places as the place of occurrence of the external cause; Y99.8 Other external cause status ==

== ENCOUNTER → 2020-08-26 | Outpatient (CLI) | payer OTHER, BC | LOC: HYPER 08:24 | PROVIDERS: ATTEND Emergency Medicine | DX: L89.322 Pressure ulcer of left buttock, stage 2 (principal); L89.893 Pressure ulcer of other site, stage 3; S71.112D Laceration without foreign body, left thigh, subsequent encounter; L84 Corns and callosities; B36.9 Superficial mycosis, unspecified; B37.89 Other sites of candidiasis; E66.01 Morbid (severe) obesity due to excess calories; G82.20 Paraplegia, unspecified; Q05.2 Lumbar spina bifida with hydrocephalus; I87.2 Venous insufficiency (chronic) (peripheral); I10 Essential (primary) hypertension; Z68.42 Body mass index [BMI] 45.0-49.9, adult; X58.XXXD Exposure to other specified factors, subsequent encounter ==

== ENCOUNTER → 2020-09-09 | Outpatient (CLI) | payer OTHER, BC | LOC: HYPER 08:23 | PROVIDERS: ATTEND Emergency Medicine | DX: L89.322 Pressure ulcer of left buttock, stage 2 (principal); L89.893 Pressure ulcer of other site, stage 3; S71.112D Laceration without foreign body, left thigh, subsequent encounter; L84 Corns and callosities; B36.9 Superficial mycosis, unspecified; B37.89 Other sites of candidiasis; E66.01 Morbid (severe) obesity due to excess calories; G82.20 Paraplegia, unspecified; Q05.2 Lumbar spina bifida with hydrocephalus; I87.2 Venous insufficiency (chronic) (peripheral); I10 Essential (primary) hypertension; Z68.42 Body mass index [BMI] 45.0-49.9, adult; X58.XXXD Exposure to other specified factors, subsequent encounter ==

== ENCOUNTER → 2020-09-23 | Outpatient (CLI) | payer OTHER, BC | LOC: HYPER 15:46 | PROVIDERS: ATTEND Emergency Medicine | DX: L89.322 Pressure ulcer of left buttock, stage 2 (principal); L89.893 Pressure ulcer of other site, stage 3; S71.112D Laceration without foreign body, left thigh, subsequent encounter; L84 Corns and callosities; B36.9 Superficial mycosis, unspecified; B37.89 Other sites of candidiasis; E66.01 Morbid (severe) obesity due to excess calories; G82.20 Paraplegia, unspecified; Q05.2 Lumbar spina bifida with hydrocephalus; I87.2 Venous insufficiency (chronic) (peripheral); I10 Essential (primary) hypertension; Z68.42 Body mass index [BMI] 45.0-49.9, adult; X58.XXXD Exposure to other specified factors, subsequent encounter ==

== ENCOUNTER → 2020-11-04 | Outpatient (CLI) | payer OTHER, BC | LOC: HYPER 07:59 | PROVIDERS: ATTEND Emergency Medicine | DX: L89.322 Pressure ulcer of left buttock, stage 2 (principal); L89.893 Pressure ulcer of other site, stage 3; S71.112D Laceration without foreign body, left thigh, subsequent encounter; L84 Corns and callosities; B36.9 Superficial mycosis, unspecified; B37.89 Other sites of candidiasis; E66.01 Morbid (severe) obesity due to excess calories; G82.20 Paraplegia, unspecified; Q05.2 Lumbar spina bifida with hydrocephalus; I87.2 Venous insufficiency (chronic) (peripheral); I10 Essential (primary) hypertension; Z68.42 Body mass index [BMI] 45.0-49.9, adult; X58.XXXD Exposure to other specified factors, subsequent encounter ==

== ENCOUNTER → 2020-11-25 | Outpatient (CLI) | payer OTHER, BC | LOC: HYPER 08:54 | PROVIDERS: ATTEND Emergency Medicine Emergency Medical Services | DX: L89.893 Pressure ulcer of other site, stage 3 (principal); L84 Corns and callosities; B36.9 Superficial mycosis, unspecified; B37.89 Other sites of candidiasis; E66.01 Morbid (severe) obesity due to excess calories; G82.20 Paraplegia, unspecified; Q05.2 Lumbar spina bifida with hydrocephalus; I87.2 Venous insufficiency (chronic) (peripheral); I10 Essential (primary) hypertension; Z68.42 Body mass index [BMI] 45.0-49.9, adult ==

== ENCOUNTER → 2020-12-16 | Outpatient (CLI) | payer OTHER, BC | LOC: HYPER 07:54 | PROVIDERS: ATTEND Emergency Medicine | DX: L89.893 Pressure ulcer of other site, stage 3 (principal); L89.892 Pressure ulcer of other site, stage 2; I87.2 Venous insufficiency (chronic) (peripheral); Q05.2 Lumbar spina bifida with hydrocephalus; B36.9 Superficial mycosis, unspecified; I10 Essential (primary) hypertension; B37.89 Other sites of candidiasis; E66.01 Morbid (severe) obesity due to excess calories; Z68.42 Body mass index [BMI] 45.0-49.9, adult; Z93.3 Colostomy status; Z79.01 Long term (current) use of anticoagulants; Z79.899 Other long term (current) drug therapy ==

== ENCOUNTER → 2021-03-31 | Outpatient (CLI) | payer OTHER, BC | LOC: HYPER 14:27 | PROVIDERS: ATTEND Emergency Medicine | DX: L89.893 Pressure ulcer of other site, stage 3 (principal); I87.2 Venous insufficiency (chronic) (peripheral); Q05.2 Lumbar spina bifida with hydrocephalus; B36.9 Superficial mycosis, unspecified; B37.89 Other sites of candidiasis; R21 Rash and other nonspecific skin eruption; I10 Essential (primary) hypertension; E66.01 Morbid (severe) obesity due to excess calories; Z68.41 Body mass index [BMI] 40.0-44.9, adult; Z79.899 Other long term (current) drug therapy; Z93.3 Colostomy status ==

== ENCOUNTER → 2021-04-21 | Outpatient (CLI) | payer OTHER, BC | LOC: HYPER 12:47 | PROVIDERS: ATTEND Emergency Medicine Emergency Medical Services | DX: L89.893 Pressure ulcer of other site, stage 3 (principal); K28.9 Gastrojejunal ulcer, unspecified as acute or chronic, without hemorrhage or perforation; I87.2 Venous insufficiency (chronic) (peripheral); B37.89 Other sites of candidiasis; Q05.2 Lumbar spina bifida with hydrocephalus; B36.9 Superficial mycosis, unspecified; G83.9 Paralytic syndrome, unspecified; I10 Essential (primary) hypertension; E66.01 Morbid (severe) obesity due to excess calories; Z68.41 Body mass index [BMI] 40.0-44.9, adult; Z98.890 Other specified postprocedural states ==

== ENCOUNTER → 2021-05-12 | Outpatient (CLI) | payer OTHER, BC | LOC: HYPER 09:22 | PROVIDERS: ATTEND Emergency Medicine | DX: L89.893 Pressure ulcer of other site, stage 3 (principal); L89.616 Pressure-induced deep tissue damage of right heel; L84 Corns and callosities; K28.9 Gastrojejunal ulcer, unspecified as acute or chronic, without hemorrhage or perforation; I87.2 Venous insufficiency (chronic) (peripheral); B37.89 Other sites of candidiasis; Q05.2 Lumbar spina bifida with hydrocephalus; B36.9 Superficial mycosis, unspecified; E66.01 Morbid (severe) obesity due to excess calories; G83.9 Paralytic syndrome, unspecified; I10 Essential (primary) hypertension; Z68.41 Body mass index [BMI] 40.0-44.9, adult ==

== ENCOUNTER → 2021-05-26 | Outpatient (CLI) | payer OTHER, BC | LOC: HYPER 09:18 | PROVIDERS: ATTEND Emergency Medicine | DX: L89.893 Pressure ulcer of other site, stage 3 (principal); L89.616 Pressure-induced deep tissue damage of right heel; L84 Corns and callosities; K28.9 Gastrojejunal ulcer, unspecified as acute or chronic, without hemorrhage or perforation; I87.2 Venous insufficiency (chronic) (peripheral); B37.89 Other sites of candidiasis; Q05.2 Lumbar spina bifida with hydrocephalus; B36.9 Superficial mycosis, unspecified; E66.01 Morbid (severe) obesity due to excess calories; G83.9 Paralytic syndrome, unspecified; I10 Essential (primary) hypertension; Z68.41 Body mass index [BMI] 40.0-44.9, adult ==

== ENCOUNTER → 2021-06-24 | Outpatient (CLI) | payer OTHER, BC | LOC: HYPER 08:38 | PROVIDERS: ATTEND Emergency Medicine | DX: L89.610 Pressure ulcer of right heel, unstageable (principal); L89.893 Pressure ulcer of other site, stage 3; L84 Corns and callosities; B37.89 Other sites of candidiasis; K28.9 Gastrojejunal ulcer, unspecified as acute or chronic, without hemorrhage or perforation; I87.2 Venous insufficiency (chronic) (peripheral); Q05.2 Lumbar spina bifida with hydrocephalus; B36.9 Superficial mycosis, unspecified; E66.01 Morbid (severe) obesity due to excess calories; G83.9 Paralytic syndrome, unspecified; I10 Essential (primary) hypertension; Z68.41 Body mass index [BMI] 40.0-44.9, adult ==